=== PATIENT | female | born 1955 | race Caucasian/White ===

== ENCOUNTER 2016-12-16 20:52 | Inpatient (IN) ==
[2016-12-16] MEDS ORDERED: 0.9 % Sodium Chloride 1,000 ML IVC ONE (21:36)
[2016-12-16 22:06] LABS: Basophils % 0.1 %; Eosinophils % 0.4 %; Hematocrit 22.9 % (35.3-44.9); Immature Granulocytes % 1.2 % (0-4); Lymphocytes # 0.7 K/mcL (0.6-4.6); Lymphocytes % 9.5 %; Mean Corpuscular HGB Conc 32.8 g/dL (31.6-35.5); Mean Corpuscular Hemoglobin 33.3 pg (28.0-33.3); Mean Corpuscular Volume 101.8 fL (83.0-100.0); Mean Platelet Volume 9.6 fL (9.4-12.4); Monocytes # 0.4 K/mcL (0.0-1.3); Platelet Count 109 K/mcL (140-400); Red Blood Count 2.25 M/mcL (3.82-4.97); Red Cell Distribution Width 14.6 % (11.5-14.5); Segmented Neutrophils % 83.8 %
[2016-12-16 22:11] LABS: INR 1.3; Prothrombin Time 14.4 Seconds (9.4-12.1)
[2016-12-16 22:20] LABS: Hemoglobin 7.5 g/dL (11.5-15.4); Neutrophils # 6.5 K/mcL (1.6-8.9)
[2016-12-16 22:22] LABS: Albumin 3.2 g/dL (3.5-5.0); Albumin/Globulin Ratio 0.7 (1.1-2.2); Bilirubin,Direct 0.2 mg/dL (0.0-0.5); Bilirubin,Indirect 0.2 mg/dL (0.0-1.2); Bilirubin,Total 0.4 mg/dL (0.2-1.2); Calcium 11.1 mg/dL (8.6-10.8); Globulin 4.5 g/dL (2.4-3.5); Macrocytosis Present (Not Present); Platelet Estimate Decreased (Normal); Polychromasia 1+ (Not Present); Potassium 4.4 mEq/L (3.5-4.5); Total Protein 7.7 g/dL (6.0-8.3); Toxic Granulation Present (Not Present)
--- NOTE | 2016-12-16 22:46 | Emergency Department Note ---
Disposition Clinical Impression: Tachycardia, Liver mass Anemia Qualifiers: Anemia type: unspecified type Qualified Code(s): D64.9 - Anemia, unspecified Abdominal pain Qualifiers: Abdominal location: unspecified location Qualified Code(s): R10.9 - Unspecified abdominal pain Renal cancer Qualifiers: Laterality: right Qualified Code(s): C64.1 - Malignant neoplasm of right kidney , except renal pelvis Disposition: Admitted As Inpatient Condition: Fair Referrals: NO,PCP [Primary Care Provider] - Forms: Work/School Release, ED Satisfaction Letter Time of Disposition: 23:06 Abdominal Pain HPI - General Chief Complaint: ED Abdominal Pain Stated Complaint: PALE, WEAKNESS, ABD PAIN (CANCER PT) Time Seen by Provider: 12/16/16 21:25 Source: patient Mode of arrival: ambulatory Limitations: no limitations Nursing Notes Reviewed: Yes Vital Signs Reviewed: Yes - History of Present Illness HPI Narrative: Patient seen and examined the time of arrival. She presents to the emergency room for feeling weak and pale. She is currently in chemotherapy treatment for renal cell cancer. She had her last treatment on December 06 from the [facility]. Denies chest pain shortness of breath headache vision changes nausea vomiting or diarrhea. Denies fevers or chills. Patient is just concerned that she felt generally weak and wanted to make sure that her blood counts were normal. Pt Subjective Complaint: abdominal pain Onset (ago): day(s) Consistency: constant Location: RUQ Pain Scale: 0 Quality: cramping Radiation: none Migration to: no migration Improves with: nothing Worsens with: movement Context: recent antibiotic use, recent surgery/procedure Associated symptoms: Denies: nausea, vomiting, diarrhea, fever, chills, constipation, dysuria Treatments prior to arrival: none - Related Data Home Medications Medication Instructions Recorded Confirmed Lisinopril [Zestril] 10 mg PO DAILY 08/10/16 11/15/16 Previous Rx's Medication Instructions Recorded ALPRAZolam [Xanax 0.5 MG Tablet] 0.5 mg PO BID PRN #60 tablet 08/10/16 Nicotine [Nicotine Patch] 1 each TD DAILY #30 patch.td24 08/10/16 Dexamethasone [Decadron] 4 mg PO BID #36 tab 08/13/16 Loratadine [Claritin] 10 mg PO AD PRN #10 tablet 08/13/16 Magic Mouthwash [Magic Mouthwash 10 ml PO QID PRN #240 ml 08/13/16 BLM] Ondansetron [Zofran] 4 mg PO Q8HR PRN #90 tablet 08/13/16 Prochlorperazine Maleate 10 mg PO Q8HR #90 tablet 08/13/16 [Compazine] Nicotine Patch [Nicoderm] 21 mg TD DAILY #28 patch.td24 10/04/16 Allergies Allergy/AdvReac Type Severity Reaction Status Date / Time No Known Allergies Allergy Verified 09/13/16 13:50 All systems ED: reviewed and negative except as stated. Constitutional: Denies: fever, chills Respiratory: Denies: cough, dyspnea, wheezes, hemoptysis Gastrointestinal: Reports: abdominal pain. Denies: nausea, vomiting, diarrhea Genitourinary: Denies: urgency, dysuria Musculoskeletal: Denies: back pain, neck pain Neurological: Denies: headache Endocrine: Reports: fatigue Abdominal Pain PMH - Past Medical History Medical history: Reports: cancer Female Surgical History: Reports: cholecystectomy Psychiatric history: Reports: no psych history - Social History Smoking status: Former smoker Alcohol use: Reports: none Drug use: Reports: none Physical Exam - General Limitations: no limitations General appearance: alert, in no apparent distress - Respiratory Respiratory exam: Present: normal lung sounds bilaterally. Absent: respiratory distress, wheezes, accessory muscle use - Cardiovascular Cardiovascular exam: Present: regular rate, normal rhythm, normal heart sounds. Absent: bradycardia, tachycardia - Abdominal Exam Abdominal exam: Present: soft, Non-Tender, normal bowel sounds. Absent: tenderness, distention, guarding, rebound, rigidity, Concepcion's sign, Rovsing's sign, tenderness at McBurney's Point - Extremities Exam Extremities exam: Present: normal inspection, full ROM, normal capillary refill. Absent: tenderness, pedal edema - Back Exam Back exam: Present: normal inspection, full ROM. Absent: tenderness, CVA tenderness (R), CVA tenderness (L) - Neurological Exam Neurological exam: Present: alert, oriented X3, CN II-XII intact, normal gait - Psychiatric Psychiatric exam: Present: normal affect, normal mood - Skin Skin exam: Present: warm, dry, intact, normal color Course Course Narrative: Patient seen and examined the time arrival. See history of present illness. 61 -year-old female presents emergency room for evaluation of feeling generalized weakness. She also feels like her skin is pale. She has intermittent right- sided flank and abdominal pain. Symptoms of been more persistent urinary last 24 hours. Of note, patient has renal cell cancer for which she is currently getting chemotherapy treatment. She had her last dose of chemotherapy on December 06. Patient denied chest pain shortness of breath headache vision changes nausea vomiting or diarrhea. Denies fevers chills at this time. Her main complaint and concern at this time is that she wanted to make sure her blood counts were normal secondary to having anemia after her previous chemotherapy evaluation. Patient denies any dark stool or concern for GI bleed. She also denies any hematemesis. Vital signs reviewed on presentation are stable. Physical exam is benign. Lungs are clear heart is regular abdomen is soft nontender nondistended no guarding no rigidity. No visible signs of rash or lesion on the back. Patient moves all 4 extremities without any difficulty she has no signs of pitting edema or concern for congestive heart failure. Symptoms are concerning for underlying etiology considering she is technically immunosuppressed. Imaging studies of the chest and abdomen ordered this time. Laboratory workup including urinalysis CBC chemistry and troponin were all ordered. EKG was also collected. Disposition pending this workup and treatment course. Patient had a previous hemoglobin of 9.5 approximately 2 weeks ago. We will continue to monitor here in the emergency room as this evaluation treatment course are completed. Patient has no other complaints or symptoms. She does not request any pain medication at this time. - Reevaluation(s) Reevaluation #1: Patient found to have a hemoglobin of 7.5 here today. Rectal examination to be completed dressing for any occult blood. The rest of her laboratory workup appears to be stable in comparison to previous. EKG shows normal sinus rhythm and no acute signs of ST segment elevation. She does have sinus tachycardia 100. Patient provided with fluids while here. Type and screen ordered. Patient will be recommended to admit to the hospital once we have more definitive laboratory evaluation completed. Otherwise patient is resting comfortably in the bed in no other acute issue. We will continue to monitor his treatment course is completed Time: 22:53 Reevaluation #2: Patient discussed with the hospitalist. Detailed review of the presentation symptoms medical intervention as well as oncologic history were reviewed. On the recommendation of this time based on the presentation and findings of anemia were to transfuse the patient 1 unit of blood in the emergency room for symptomatic treatment. Otherwise no other concerns at this time. Patient will be admitted to the hospital this point. We will continue to monitor here in the emergency room until the admission process is completed. She and the family were both informed at the bedside. We discussed the findings on the CT scan as well as laboratory evaluation. They both understand this and are comfortable being admitted at this point. Time: 00:39 Vital Signs Temperature 98.3 F 12/16/16 20:55 Pulse Rate 107 12/16/16 20:55 Respiratory Rate 16 12/16/16 20:55 Blood Pressure 108/66 12/16/16 20:55 O2 Sat by Pulse Oximetry 96 12/16/16 20:55 Temperature 98.3 F 12/16/16 20:55 Pulse Rate 95 12/16/16 23:58 Respiratory Rate 16 12/16/16 23:58 Blood Pressure 106/39 12/16/16 23:58 O2 Sat by Pulse Oximetry 97 12/16/16 23:58 Oxygen Delivery Oxygen Delivery Room Air Abdominal Pain - MDM Narrative Medical decision making narrative: Anemia, chemotherapy, generalized malaise, Hemoccult-positive stool, liver lesion - Medical Records Medical records reviewed: Yes I reviewed the patient's medical records. - Lab Data Lab results reviewed: Yes I reviewed the patient's lab results. Result diagrams: 12/16/16 21:58 12/16/16 21:58 Lab Results 12/16/16 12/16/16 12/16/16 Range/Units 21:58 21:58 21:58 WBC 7.8 (4.3-11.1) K/mcL RBC 2.25 L (3.82-4.97) M/mcL Hgb 7.5 L (11.5-15.4) g/dL Hct 22.9 L (35.3-44.9) % MCV 101.8 H (83.0-100.0) fL MCH 33.3 (28.0-33.3) pg MCHC 32.8 (31.6-35.5) g/dL RDW 14.6 H (11.5-14.5) % Plt Count 109 L (140-400) K/mcL MPV 9.6 (9.4-12.4) fL Immature Gran % 1.2 (0-4) % Seg Neutrophils % 83.8 % Lymphocytes % 9.5 % Monocytes % 5.0 % Eosinophils % 0.4 % Basophils % 0.1 % Neutrophils # 6.5 (1.6-8.9) K/mcL Lymphocytes # 0.7 (0.6-4.6) K/mcL Monocytes # 0.4 (0.0-1.3) K/mcL Eosinophils # 0.0 (0.0-0.6) K/mcL Basophils # 0.0 (0.0-0.2) K/mcL Toxic Granulation Present A (Not Present) Platelet Estimate Decreased L (Normal) Polychromasia 1+ A (Not Present) Macrocytosis Present A (Not Present) PT 14.4 H (9.4-12.1) Seconds INR 1.3 APTT 26.0 (26.0-36.0) Seconds Sodium 135 L (136-145) mEq/L Potassium 4.4 (3.5-4.5) mEq/L Chloride 104 (98-109) mEq/L Carbon Dioxide 21 (19-29) mEq/L BUN 34 H (7-20) mg/dL Creatinine 1.16 H (0.57-1.11) mg/dL Est GFR ( Amer) 58 L (> 60) Est GFR (Non-Af Amer) 47 L (> 60) BUN/Creatinine Ratio 29 H (6-26) Glucose 134 H (70-99) mg/dL Calculated Osmolality 290 (280-300) Calcium 11.1 H (8.6-10.8) mg/dL Total Bilirubin 0.4 (0.2-1.2) mg/dL Direct Bilirubin 0.2 (0.0-0.5) mg/dL Indirect Bilirubin 0.2 (0.0-1.2) mg/dL AST 24 (5-34) Units/L ALT 39 (0-55) Units/L Alkaline Phosphatase 148 H (38-126) Units/L Troponin I (0-0.03) ng/mL Serum Total Protein 7.7 (6.0-8.3) g/dL Albumin 3.2 L (3.5-5.0) g/dL Globulin 4.5 H (2.4-3.5) g/dL Albumin/Globulin Ratio 0.7 L (1.1-2.2) Lipase 12 (8-78) Units/L Stool Occult Blood (Negative) Blood Type Antibody Screen Crossmatch 12/16/16 12/16/16 12/16/16 Range/Units 21:58 21:58 23:14 WBC (4.3-11.1) K/mcL RBC (3.82-4.97) M/mcL Hgb (11.5-15.4) g/dL Hct (35.3-44.9) % MCV (83.0-100.0) fL MCH (28.0-33.3) pg MCHC (31.6-35.5) g/dL RDW (11.5-14.5) % Plt Count (140-400) K/mcL MPV (9.4-12.4) fL Immature Gran % (0-4) % Seg Neutrophils % % Lymphocytes % % Monocytes % % Eosinophils % % Basophils % % Neutrophils # (1.6-8.9) K/mcL Lymphocytes # (0.6-4.6) K/mcL Monocytes # (0.0-1.3) K/mcL Eosinophils # (0.0-0.6) K/mcL Basophils # (0.0-0.2) K/mcL Toxic Granulation (Not Present) Platelet Estimate (Normal) Polychromasia (Not Present) Macrocytosis (Not Present) PT (9.4-12.1) Seconds INR APTT (26.0-36.0) Seconds Sodium (136-145) mEq/L Potassium (3.5-4.5) mEq/L Chloride (98-109) mEq/L Carbon Dioxide (19-29) mEq/L BUN (7-20) mg/dL Creatinine (0.57-1.11) mg/dL Est GFR ( Amer) (> 60) Est GFR (Non-Af Amer) (> 60) BUN/Creatinine Ratio (6-26) Glucose (70-99) mg/dL Calculated Osmolality (280-300) Calcium (8.6-10.8) mg/dL Total Bilirubin (0.2-1.2) mg/dL Direct Bilirubin (0.0-0.5) mg/dL Indirect Bilirubin (0.0-1.2) mg/dL AST (5-34) Units/L ALT (0-55) Units/L Alkaline Phosphatase (38-126) Units/L Troponin I 0.00 (0-0.03) ng/mL Serum Total Protein (6.0-8.3) g/dL Albumin (3.5-5.0) g/dL Globulin (2.4-3.5) g/dL Albumin/Globulin Ratio (1.1-2.2) Lipase (8-78) Units/L Stool Occult Blood Positive A (Negative) Blood Type O POSITIVE Antibody Screen NEGATIVE Crossmatch See Detail - Radiology Data Radiology results reviewed: Yes I reviewed the patient's radiology results. Chest x-ray is negative for acute intrathoracic related pathology. CT imaging the abdomen is concerning for possible metastatic liver lesion with effusion. No other acute pathology noted on that evaluation. - EKG Data EKG attestation: Yes I reviewed and interpreted this EKG. EKG shows normal: sinus rhythm, axis, intervals, QRS complexes, ST-T waves Rate: tachycardia Rhythm: NSR [place]/QRS: normal When compared to previous EKG there are: previous EKG unavailable Interpretation: normal EKG Attestation Statement - Attestation Attestation: I personally interviewed and examined this patient and my medical decision- making was reviewed with the ED Resident Physician, Dr. Kim. I agree with the documented findings, disposition and treatment plan as described except to the extent set forth below. Patient is a 61-year-old white female with history of renal cell carcinoma is being managed by hem/onc at [facility] and currently in chemotherapy. Patient's last treatment was December 06. Patient presented here complaining of generalized weakness and pallor. Patient concerned that maybe her labs were abnormal due to the generalized weakness was concern for possible anemia and came in for evaluation. Patient denies any chest pain or pressure no shortness breath, no fevers or chills, upper respiratory symptoms or cough, no abdominal pain, no nausea vomiting or diarrhea, no bright red blood per rectum per patient. No syncopal events or presyncopal events at home prior to arrival. No history of falls or trauma. Patient also complaining of right upper quadrant right back pain that she has been experiencing that seems to be gradually worsening. She is status post right nephrectomy as well as right cholecystectomy. Patient's vital signs were stable on arrival and patient appeared in no acute distress. I agree with physical exam findings as documented. Patient found to be more anemic than prior recent labs with a hemoglobin of 7.5. Patient was typed and crossed from the ED. Patient was also found to be guaiac positive from below from stool specimen by rectal exam. Patient with no prior history of lower GI bleeding. Patient also with her thrombocytopenia. Obtain CT scan and imaging due to patient's right-sided abdominal and back pain. CT shows new metastatic changes to the liver with subcapsular fluid collection most likely causing her right-sided pain. Discussed the results with the patient and will admit the patient for further evaluation and consultation by hem/onc. Patient resting more comfortably following pain medicine administration in the ED. Patient was accepted for admission by the hospitalist for further evaluation. Patient will be admitted for anemia, GI bleed, abdominal pain, and liver metastases with perihepatic fluid collection.
[2016-12-17 01:13] LABS: Hematocrit 20.9 % (35.3-44.9); Hemoglobin 6.8 g/dL (11.5-15.4)
[2016-12-17] MEDS ORDERED: 0.9 % Sodium Chloride 250 ML ONE ×3 (01:51→06:24)
[2016-12-17] MEDS ORDERED: Naloxone 0.4 MG/ML INJ IVP PRN (02:06)
[2016-12-17] MEDS ORDERED: ALPRAZolam 0.5 MG TABLET PO PRN (02:09)
[2016-12-17] MEDS ORDERED: Prochlorperazine 10 MG/2 ML VIAL IVP PRN (02:10)
[2016-12-17] MEDS: *HR* Morphine 2 MG/ML SYRINGE IVP PRN ×2 (02:54→06:54)
--- NOTE | 2016-12-17 03:43 | Internal Med History&Physical ---
<Jimenez Lucio - Last Filed: 12/17/16 03:46> Date of Encounter: 12/17/16 Time of Encounter: 03:41 Assessment and Plan (1) Anemia Current visit: Yes Status: Acute Acute blood loss anemia likely due to bleeding around the liver. CT scan shows a large fluid collection measuring 21 cm x 5.3 cm x 16 cm. Spoke with the radiologist who feels that this fluid collection is more dense than simple fluid and there is concern that this fluid is blood. Patient is hemodynamically stable at this time. Hemoglobin was 7.5 on presentation, recheck was 6.8 however this was after a liter bolus other may be a dilutional effect. Patient denies trauma or any injury to the area that could have caused this bleeding. There is concern for metastatic disease in this area so bleeding tumor is a concern. Patient will be transfused 3 units she does have a mild coagulopathy with an INR 1.3 and not on any blood thinners. Given the concern for active bleeding we will administer 10 mg of IV vitamin K. Hemoccult stool was positive however the patient denies any hematemesis, hematochezia, melena. While this could be a source of bleeding and the patient will likely need endoscopy in the near future, at this point bleeding around the liver seems to be the more likely source. Will give Protonix IV twice a day. Surgery has been consulted. CODE STATUS discussion was held with the patient and her . Patient wishes to remain a full code at this time. Patient does not have a designated medical power of assistant county attorney however she did not need her Bill to be her decision maker in the event that she cannot make decisions for herself. Will consult social work to assist the patient and her in completing medical power of assistant county attorney paperwork. Qualifiers: Anemia type: other cause Other causes of anemia: acute posthemorrhagic Qualified Code(s): D62 - Acute posthemorrhagic anemia (2) Liver hematoma Current visit: Yes Status: Acute Concern for bleeding around the liver as discussed above. We will transfuse 3 units and reversed mild coagulopathy with 10 mg of IV vitamin K. Surgery has been consulted. Qualifiers: Encounter type: initial encounter Qualified Code(s): S36.112A - Contusion of liver, initial encounter (3) FANY (acute kidney injury) Current visit: Yes Status: Acute Patient has mild elevation in her creatinine to 1.16 with a GFR 47. Previous measurements all showed GFR greater than 60. Likely related to anemia and dehydration. Patient received a liter bolus in the emergency department and will receive 3 units of blood. Will recheck in the morning. Patient has good urine output. (4) Nausea and vomiting Current visit: Yes Status: Acute Likely related to chemotherapy, improved at this time. Continue dexamethasone 4 mg twice a day and Compazine 10 mg IV every 6 when necessary. Qualifiers: Vomiting type: unspecified Vomiting Intractability: non-intractable Qualified Code(s): R11.2 - Nausea with vomiting, unspecified (5) Urothelial cancer Current visit: No Status: Acute Status post nephrectomy approximately 3 years ago and radical hysterectomy in June, all performed at [facility]. The patient recently completed her final chemotherapy treatment on 12/06/2016. There is concern for increased size of liver masses seen on CT. Oncology will be consulted. (6) Hypertension Current visit: Yes Status: Acute Stable. We will hold antihypertensives at this time. Continue to monitor. Qualifiers: Hypertension type: essential hypertension Qualified Code(s): I10 - Essential (primary) hypertension (7) DVT prophylaxis Current visit: Yes Status: Acute Pharmacologic DVT prophylaxis is contraindicated due to concern for bleeding. We will initiate EPCDs. Internal Medicine - H&P: HPI Chief complaint: Fatigue/weakness Admitted From: Emergency Dept Plans for Post Hospital Care: Home History of present illness: Ms. Weaver is a 61 year old female with history of hypertension and urothelial carcinoma presents with fatigue and weakness. Patient states that over the weekend she felt extremely fatigued and weak and mostly laid around on the couch all weekend. She also complained of mild shortness of breath. Patient states that she thought this was initially related to her chemotherapy which she completed on December 06 but her symptoms did not improve so she came to the emergency department. Patient also complains of nausea, vomiting, and diarrhea which been present the entire time she has been undergoing chemotherapy. She denies any hematemesis, hematochezia, melena. She reports right flank pain that has been present for several years. She denies any change in this pain. She denies any falls, trauma, injury to her back, flank, or abdomen. She denies fever, chills, chest pain, cough, dysuria, hematuria. Past Med Surg Social Fam HX - Past Medical History Medical history: cancer Psychiatric history: no psych history - Past Surgical History Surgical History: cancer surgery (Nephrectomy, radical hysterectomy) - Social History Smoking Status: Former smoker Smokeless Tobacco Status: No Alcohol use: none Drug use: none Internal Medicine - H&P: Meds ALPRAZolam [Xanax 0.5 MG Tablet] 0.5 mg PO BID PRN #60 tablet 08/10/16 [Rx] Lisinopril [Zestril] 10 mg PO DAILY 08/10/16 [History] Nicotine [Nicotine Patch] 1 each TD DAILY #30 patch.td24 08/10/16 [Rx] Dexamethasone [Decadron] 4 mg PO BID #36 tab 08/13/16 [Rx] Loratadine [Claritin] 10 mg PO AD PRN #10 tablet 08/13/16 [Rx] Magic Mouthwash [Magic Mouthwash BLM] 10 ml PO QID PRN #240 ml 08/13/16 [Rx] Ondansetron [Zofran] 4 mg PO Q8HR PRN #90 tablet 08/13/16 [Rx] Prochlorperazine Maleate [Compazine] 10 mg PO Q8HR #90 tablet 08/13/16 [Rx] Nicotine Patch [Nicoderm] 21 mg TD DAILY #28 patch.td24 10/04/16 [Rx] Allergies No Known Allergies Allergy (Verified 09/13/16 13:50) All Systems PM: A 10-system review of systems was performed and is negative for pertinent findings except as documented above in the HPI. - Constitutional Constitutional: fatigue, lethargy, weakness, no chills, no fever(s) - EENT Eyes: no blurry vision, no change in vision Nose, mouth and throat: no sinus pain, no sinus pressure - Cardiovascular Cardiovascular ROS IM: dyspnea, lightheadedness, no chest pain, no edema, no syncope - Respiratory Respiratory: dyspnea, no cough, no hemoptysis, no wheezing, no chest congestion , no excessive phlegm production, no change in phlegm color - Gastrointestinal Gastrointestinal: loose stools, nausea, vomiting, no abdominal pain, no change in bowel habits, no change in stool character, no hematemesis, no hematochezia, no melena - Genitourinary Genitourinary: no dysuria, no hematuria, no urinary urgency Menstruation: amenorrhea - Musculoskeletal Musculoskeletal ROS IM: no numbness, no stiffness, no tingling - Integumentary Integumentary IM: no erythema, no rash, no unusual bruising - Neurological Neurological ROS: dizziness, weakness, no confusion, no disequilibrium, no focal weakness, no frequent falls, no numbness, no tingling - Endocrine Endocrine IM: no polydipsia, no polyuria - Hematologic/Lymphatic Hematologic/Lymphatic: no easy bleeding, no easy bruising - Constitutional Vitals: Temp Pulse Resp BP Pulse Ox 97.8 F 94 14 119/60 98 12/17/16 02:28 12/17/16 02:28 12/17/16 02:28 12/17/16 02:28 12/17/16 02:13 General appearance: Present: A&O X 3, pleasant, no acute distress, answers questions appropriately - Head Head exam: Present: atraumatic, normal inspection, normocephalic - Eye Eye exam: Present: EOMI, PERRL Additional comments: Conjunctival pallor - ENT ENT exam: Present: mucous membranes moist, normal oropharynx - Respiratory Respiratory exam: Present: CTAB. Absent: rales, rhonchi, wheezes - Cardiovascular Cardiovascular exam: Present: RRR. Absent: gallop, rubs, systolic murmur - GI/Abdominal GI/Abdominal exam: Present: hernia (Soft, nontender, easily reducible), normal bowel sounds, soft. Absent: distended, tenderness - Extremities Exam Extremities exam: Present: warm. Absent: pedal edema, tenderness - Neurological Exam Neurological exam: Present: alert, CN II-XII intact, oriented X3, no focal deficits Internal Med - H&P Results - Labs CBC & Chem 7: 12/17/16 01:08 12/16/16 21:58 <Randal Miner - Last Filed: 12/17/16 04:35> Date of Encounter: 12/17/16 - Constitutional Constitutional: fatigue, lethargy, no fever(s), no night sweats - EENT Nose, mouth and throat: no nasal congestion, no sinus pain, no sinus pressure, no sore throat - Cardiovascular Cardiovascular ROS IM: no chest pain - Respiratory Respiratory: dyspnea - Gastrointestinal Gastrointestinal: no abdominal pain, no hematemesis, no hematochezia, no melena - Musculoskeletal Musculoskeletal ROS IM: muscle weakness, no arthralgias, no back pain - Integumentary Integumentary IM: no rash, no jaundice - Neurological Neurological ROS: dizziness, weakness - Psychiatric Psychiatric: no anxiety, no depression - Endocrine Endocrine IM: no polydipsia, no polyuria - Hematologic/Lymphatic Hematologic/Lymphatic: no easy bruising - Constitutional Vitals: Temp Pulse Resp BP Pulse Ox 98.1 F 89 17 95/37 98 12/17/16 04:02 12/17/16 04:02 12/17/16 04:02 12/17/16 04:02 12/17/16 04:02 General appearance: Present: cooperative, A&O X 3, pleasant, no acute distress, answers questions appropriately - Eye Eye exam: Present: EOMI, PERRL. Absent: scleral icterus Pupils: Present: normal accommodation - Neck Neck exam general surgery: Present: full ROM, supple - Respiratory Respiratory exam: Present: CTAB. Absent: rales, rhonchi, wheezes - Cardiovascular Cardiovascular exam: Present: RRR. Absent: +S1, +S2 - GI/Abdominal GI/Abdominal exam: Present: normal bowel sounds, soft, no peritoneal signs. Absent: guarding, mass, rebound - Extremities Exam Extremities exam: Present: full ROM, warm. Absent: calf tenderness - Back Exam Back exam: Present: CVA tenderness (R), full ROM. Absent: CVA tenderness (L) - Neurological Exam Neurological exam: Present: alert, CN II-XII intact, oriented X3, no focal deficits - Psychiatric Psychiatric exam: Present: agitated - Skin Skin exam: Present: dry, warm. Absent: rash Internal Med - H&P Results - Labs CBC & Chem 7: 12/17/16 01:08 12/16/16 21:58 - Diagnostic Studies CT scan - abdomen Status: image reviewed by me (large fluid collection surrounding the liver.) - Attending Attestation I discussed the patient KAKTOVIK, PMH, ROS, lab data and exam findings with Dr. Lucio. I then saw and examined paitent independently as well. Pt feels well and her only complaint is easy fatigueabilitiy. She denies any GI or blood loss. I reviewed her CT scan from today and compared it to one in August. There is clearly a significant accumulation of fluid (suspect blood) and pressing upon the liver. She has had no trauma to her flank and/or anterior abdomen. I agree with transfusing blood and close H/H monitoring. In addition, I would order Vitamin K. We will ask oncology to assist in patient's care. Dr. Stephens was consulted by MATTHEW hunter. We will await his opinion and guidance as well. Other than my comments noted above and exam findings, I agree with Dr. Lucio's assessment and plan.
[2016-12-17] MEDS: Pantoprazole 40 MG VIAL IVP SCH ×2 (06:03→17:52)
--- NOTE | 2016-12-17 08:28 | Oncology Inp Consult Note ---
Date of Encounter: 12/17/16 Time of Encounter: 08:27 - Data of Consult Patient: known to practice within the last 3 years Consult date: 12/17/16 Requesting Physician: Casandra Goodman Primary Care Provider: Joe Suarez - Consult Narrative Reason for consult: Metastatic urothelial cancer History of present illness: Ms. Weaver is a 61 year old female patient of the cancer center who has established oncologic care for metastatic urothelial cancer. She is followed by my partner Dr. Almonte and was last seen in the office 12/06/16. I have summarized patient's heme/onc background below based on Dr. Almonte 's most recent office report: 61-year-old female with medical history significant for urothelial carcinoma treated with surgery in 2013? High-grade bladder tumor status post resection in March 2016 and was planned to start BCG treatments, CT imaging in March 2016 showed a 3 cm complex cyst and solid right ovarian mass. Patient was seen by Dr. Stark that showed a right adnexa 10 x 9 cm complex ovarian cyst. Endometrial biopsy at that time was negative. She was referred to [place] for surgery to undergo further pelvic mass. She was seen by Dr. Sugar Martin, had undergone (06/20) debulking for primary ovarian malignancy with total abdominal hysterectomy, bilateral salpingo-oophorectomy and omentectomy. Left ovary left fallopian tube mass, fibroid uterus omentum with large masses measuring 4.5 cm but found which were removed and the considerations were noted and end of surgery and no gross residual disease. Final pathology is recurrent urothelial carcinoma involving fallopian tube surface tumor biopsy was suggestive of metastatic urothelial carcinoma right ovary right fallopian tube salpingo-oophorectomy specimen high-grade urothelial carcinoma with necrosis consistent with recurrent tumor 2 CK 7 positive uroplakin 2 positive P 63 positive 06/20 Patient was referred for further evaluation and treatment for her metastatic urothelial carcinoma. CAT scan chest abdomen and pelvis August 2016. Surgical showed scarring/fluid collection, metastatic disease cannot be excluded. Small periaortic lymphadenopathyc adenopathy She started systemic therapy for metastatic bladder ca - 08/21 ROS: 12/19 12 point review of systems is otherwise negative. She had developed some burning in her feet, her last treatment as a result of which chemotherapy doses decreased. PAST MEDICAL HISTORY: abnormal mammogram, tobacco abuse Past Surgeries: rt kidney removed 2013, bladder tumor removed march 2016, cholecystectomy, breast biopsy FAMILY HISTORY: Father: , leukemia Mother: alive, uterine cancer, CVA, COPD, PAD, aneurysm Family hx of HTN, cancer, CVA and PAD. mom: cervical cancer SOCIAL HISTORY Tobacco use: Current smoker-doesn't smoke everyday Alcohol use: Denies Drug use: Denies Social history comments: Currently works at [employer] Living situation: Lives in [facility] IMPRESSION AND PLAN Metastatic high grade urothelial cancer s/p resection of gross disease-LEXI, BSO- omentectomy for suspected ovarian-pelvic mass 06/20. Residual disease at nephrectomy bed cannot be excluded, mild adenopathy-started chemotherapy for metastatic disease with carbo/taxol C1 08/23/16 Tolerated well, C6 12/06/16, today--modified dose of taxol due to neuropathy/ burning in feet. Her carbo has been dose decreased previously. She continues to work Neulasta to prevent chemo associated cytopenia. Minimal discomfort from the ankles probably related to Neulasta, chemotherapy. Patient is currently hospitalized for acute blood loss anemia due to large perihepatic hematoma confirmed an abdomen CT after presenting with progressive weakness and painful abdominal discomfort. Oncology is consulted re: possible contusion from her underlying metastatic urothelial cancer. Dr. Stephens has also been consulted for recommendations regarding management of a perihepatic hematoma. Her last visit chemotherapy was 12/06/16 at which time she had completed 6 planned cycles of treatment. She evidently tolerated treatment well with no unexpected side effects. Patient seen and examined at bedside. Alfred was present at time of evaluation. Chart review for details of ongoing care by hospital team which is much appreciated. She reports feeling considerably better following transfusion of 3 units of packed PRBC. She denies any antecedent trauma leading up to her hospitalization. Rest of past medical, surgical, family, social history detailed below and verified with patient today. Review of systems: 12 point review of systems performed with patient and positive findings noted in history of present illness. All other systems are negative: Physical exam: Vital Signs Temp 98.1 F 12/17/16 07:08 Pulse 83 12/17/16 08:08 Resp 25 12/17/16 07:08 BP 106/50 12/17/16 07:08 Pulse Ox 96 12/17/16 07:08 GENERAL: Alert and oriented, comfortable appearing. Mental Status: Affect appropriate for circumstances HEENT: Sclerae anicteric. No mucositis or thrush. No other oral or pharyngeal lesions or erythema. Skin: No rashes or petechiae. No evidence of skin malignancy Lymph nodes: No cervical, supraclavicular, axillary, or inguinal adenopathy. Lungs: Clear to auscultation bilaterally. Clear to percussion bilaterally. Cardiovascular: Regular rate and rhythm. No gallops, murmurs, or rubs. Abdomen: Soft, nontender; No organomegaly or masses palpable. Extremities: No edema. No calf swelling or tenderness. No joint deformity. Neurologic: Alert, normal gait; no focal weakness or sensory abnormalities. Results: Laboratory Last Values WBC 7.8 K/mcL (4.3-11.1) 12/16/16 21:58 RBC 2.25 M/mcL (3.82-4.97) L 12/16/16 21:58 Hgb 6.8 g/dL (11.5-15.4) L 12/17/16 01:08 Hct 20.9 % (35.3-44.9) L 12/17/16 01:08 MCV 101.8 fL (83.0-100.0) H 12/16/16 21:58 MCH 33.3 pg (28.0-33.3) 12/16/16 21:58 MCHC 32.8 g/dL (31.6-35.5) 12/16/16 21:58 RDW 14.6 % (11.5-14.5) H 12/16/16 21:58 Plt Count 109 K/mcL (140-400) L 12/16/16 21:58 MPV 9.6 fL (9.4-12.4) 12/16/16 21:58 Immature Gran % 1.2 % (0-4) 12/16/16 21:58 Seg Neutrophils % 83.8 % 12/16/16 21:58 Lymphocytes % 9.5 % 12/16/16 21:58 Monocytes % 5.0 % 12/16/16 21:58 Eosinophils % 0.4 % 12/16/16 21:58 Basophils % 0.1 % 12/16/16 21:58 Neutrophils # 6.5 K/mcL (1.6-8.9) 12/16/16 21:58 Lymphocytes # 0.7 K/mcL (0.6-4.6) 12/16/16 21:58 Monocytes # 0.4 K/mcL (0.0-1.3) 12/16/16 21:58 Eosinophils # 0.0 K/mcL (0.0-0.6) 12/16/16 21:58 Basophils # 0.0 K/mcL (0.0-0.2) 12/16/16 21:58 Toxic Granulation Present (Not Present) A 12/16/16 21:58 Platelet Estimate Decreased (Normal) L 12/16/16 21:58 Polychromasia 1+ (Not Present) A 12/16/16 21:58 Macrocytosis Present (Not Present) A 12/16/16 21:58 PT 14.4 Seconds (9.4-12.1) H 12/16/16 21:58 INR 1.3 12/16/16 21:58 APTT 26.0 Seconds (26.0-36.0) 12/16/16 21:58 Sodium 135 mEq/L (136-145) L 12/16/16 21:58 Potassium 4.4 mEq/L (3.5-4.5) 12/16/16 21:58 Chloride 104 mEq/L (98-109) 12/16/16 21:58 Carbon Dioxide 21 mEq/L (19-29) 12/16/16 21:58 BUN 34 mg/dL (7-20) H 12/16/16 21:58 Creatinine 1.16 mg/dL (0.57-1.11) H 12/16/16 21:58 Est GFR ( Amer) 58 (> 60) L 12/16/16 21:58 Est GFR (Non-Af Amer) 47 (> 60) L 12/16/16 21:58 BUN/Creatinine Ratio 29 (6-26) H 12/16/16 21:58 Glucose 134 mg/dL (70-99) H 12/16/16 21:58 Calculated Osmolality 290 (280-300) 12/16/16 21:58 Calcium 11.1 mg/dL (8.6-10.8) H 12/16/16 21:58 Total Bilirubin 0.4 mg/dL (0.2-1.2) 12/16/16 21:58 Direct Bilirubin 0.2 mg/dL (0.0-0.5) 12/16/16 21:58 Indirect Bilirubin 0.2 mg/dL (0.0-1.2) 12/16/16 21:58 AST 24 Units/L (5-34) 12/16/16 21:58 ALT 39 Units/L (0-55) 12/16/16 21:58 Alkaline Phosphatase 148 Units/L (38-126) H 12/16/16 21:58 Troponin I 0.00 ng/mL (0-0.03) 12/16/16 21:58 Serum Total Protein 7.7 g/dL (6.0-8.3) 12/16/16 21:58 Albumin 3.2 g/dL (3.5-5.0) L 12/16/16 21:58 Globulin 4.5 g/dL (2.4-3.5) H 12/16/16 21:58 Albumin/Globulin Ratio 0.7 (1.1-2.2) L 12/16/16 21:58 Lipase 12 Units/L (8-78) 12/16/16 21:58 Stool Occult Blood Positive (Negative) A 12/16/16 23:14 Blood Type O POSITIVE 12/16/16 21:58 Antibody Screen NEGATIVE 12/16/16 21:58 Crossmatch See Detail 12/16/16 21:58 Radiographic studies: I personally reviewed and interpreted patient's most recent imaging studies dated 12/16/16. I discussed the findings with the patient today. Abdomen/Pelvis CT 12/16/16 21:39 IMPRESSION: Large subcapsular perihepatic fluid collection as detailed likely the cause of the patient's pain. There is also an inferior right lobe liver mass as well as probable diffuse intraperitoneal soft tissue density metastases. The liver masses has increased in size compared prior study when it was essentially nonvisualized other than irregular soft tissue posterior to the right lobe of the liver. D/ / Edson Campos MD / Edson Campos MD Interpreting Provider: Edson Campos MD Chest X-Ray 12/16/16 21:39 IMPRESSION: Negative portable chest. D/ / John Davila MD / John Davila MD Interpreting Provider: John Davila MD Impression/recommendations: Acute blood loss anemia: Due to unexplained perihepatic hematoma. Etiology unclear but abdomen CT notes enlarging liver masses. Not sure if her liver lesions on the basis of progressive metastatic disease are pre-existing liver lesions associated with intracapsular hemorrhage. Nevertheless, she appears to be doing relatively well with ongoing supportive measures I would recommend transfusion support to maintain hemoglobin of 7 or greater. She also has mild thrombocytopenia which is likely due to platelet consumption from hemorrhage. We'll monitor and transfuse pheresed platelets as needed to maintain platelet count of 30,000 or greater if she is actively bleeding. Perihepatic hematoma: Etiology unclear at this time. Contribution from underlying malignancy is a possibility although I do not appreciate any discrete lesion to explain her hemorrhage on my independent review of her scans. We'll await input from surgery. Metastatic urothelial cancer. She had maximal debulking of her recurrent disease following initial right nephroureterectomy for urothelial cancer in 2013. Due to her high recurrence risk, she completed a course of 6 cycles of combination chemotherapy adjuvantly with last treatment being on 12/06/16. No acute oncologic intervention needed at this time. We will review her case in our multidisciplinary tumor conference to reassess her liver lesion. We'll follow the patient along side you during this hospitalization but please do not hesitate to call regarding interval hematologic questions as they arise. Thank you for your excellent ongoing care for allowing us to see her while in- house. This report was created using voice recognition software and may contain errors. It was signed but not edited to expedite communication. Corrections will be made in a separate addendum as needed. Past Med Surg Social Fam HX - Past Medical History Medical history: cancer, hypertension, malignancy, renal disease Psychiatric history: no psych history - Past Surgical History Surgical History: hysterectomy, other - Social History Smoking Status: Former smoker Packs per day: 2 Smokeless Tobacco Status: No Alcohol use: none Drug use: none - Family History Mother Hx Family Cancer: Yes (Uterine, bladder cancer.) Medications and Allergies ALPRAZolam [Xanax 0.5 MG Tablet] 0.5 mg PO BID PRN #60 tablet 08/10/16 [Rx] Lisinopril [Zestril] 10 mg PO DAILY 08/10/16 [History] Nicotine [Nicotine Patch] 1 each TD DAILY #30 patch.td24 08/10/16 [Rx] Dexamethasone [Decadron] 4 mg PO BID #36 tab 08/13/16 [Rx] Loratadine [Claritin] 10 mg PO AD PRN #10 tablet 08/13/16 [Rx] Magic Mouthwash [Magic Mouthwash BLM] 10 ml PO QID PRN #240 ml 08/13/16 [Rx] Ondansetron [Zofran] 4 mg PO Q8HR PRN #90 tablet 08/13/16 [Rx] Prochlorperazine Maleate [Compazine] 10 mg PO Q8HR #90 tablet 08/13/16 [Rx] Nicotine Patch [Nicoderm] 21 mg TD DAILY #28 patch.td24 10/04/16 [Rx] Allergies No Known Allergies Allergy (Verified 09/13/16 13:50) Oncology - Exam - Constitutional Vitals: Temp Pulse Resp BP Pulse Ox 98.1 F 83 25 106/50 96 12/17/16 07:08 12/17/16 08:08 12/17/16 07:08 12/17/16 07:08 12/17/16 07:08 Consult Discharge Plan - Plan Referrals: Joe Suarez DO [Primary Care Provider] -
[2016-12-17] MEDS: 0.9 % Sodium Chloride 1,000 ML IVC SCH ×2 (10:00→21:34)
[2016-12-17 10:27] LABS: Ionized Calcium 1.51 mmol/L (1.15-1.35)
[2016-12-17 10:28] LABS: Fibrinogen 565 mg/dL (169-393)
[2016-12-17 10:31] LABS: D-Dimer 1856 ng/mLFEU (0-500)
[2016-12-17 10:34] LABS: Alanine Aminotransferase 35 Units/L (0-55); Albumin 2.9 g/dL (3.5-5.0); Albumin/Globulin Ratio 0.7 (1.1-2.2); Alkaline Phosphatase 136 Units/L (38-126); Aspartate Amino Transferase 21 Units/L (5-34); BUN/Creatinine Ratio 30 (6-26); Bilirubin,Total 0.9 mg/dL (0.2-1.2); Blood Urea Nitrogen 28 mg/dL (7-20); Calcium 10.5 mg/dL (8.6-10.8); Carbon Dioxide 20 mEq/L (19-29); Chloride 106 mEq/L (98-109); Globulin 4.3 g/dL (2.4-3.5); Glucose 134 mg/dL (70-99); Osmolality,Calculated 285 (280-300); Phosphorous 2.3 mg/dL (2.3-4.7); Potassium 4.3 mEq/L (3.5-4.5); Sodium 134 mEq/L (136-145); Total Protein 7.2 g/dL (6.0-8.3); eGFR For African Americans > 60 (> 60); eGFR For Non-African Americans > 60 (> 60)
[2016-12-17 11:34] LABS: Gamma Glutamyl Transpeptidase 124 Units/L (9-36)
[2016-12-17 11:43] LABS: Bilirubin,Urine Negative (Negative); Blood,Urine Large (Negative); Clarity,Urine Cloudy (Clear); Color,Urine Yellow (Yellow); Glucose,Urine (UA) Normal (Normal); Ketones,Urine Negative (Negative); Leukocyte Esterase,Urine Small (Negative); Nitrite,Urine Positive (Negative); PH,Urine 5.5 pH Units (5.0-8.0); Protein,Urine 30 mg/dL (Neg-Trace); Specific Gravity,Urine 1.023 (1.010-1.025); Urobilinogen,Urine Normal (Normal)
[2016-12-17 11:44] LABS: Bacteria,Urine Moderate per hpf (None-Few); Hyaline Casts,Urine None Seen per lpf (None-Few); RBC,Urine 50-100 per hpf (0-3); Squamous Epithelial Cell,Urine Moderate per lpf (None-Few); WBC,Urine 15-30 per hpf (0-3)
--- NOTE | 2016-12-17 12:32 | General Surgery Consult Note ---
Date of Encounter: 12/17/16 Time of Encounter: 12:00 History of Present Illness Consult date: 12/17/16 Requesting physician: Serafin Kim History of present illness: 61 yo with known metastatic urothelial cancer admitted after presenting [facility] with progressive weakness, malaise and right flank/back pain. Patient had just completed hemotherapy approximately 1 week prior. Patient was notably anemic, hemoglobin on presentation 7.[address], without contrast, showed a large collection surrounding the liver measuring 21 x 5.3 x 16 cm. The density was suggestive of blood but it appears contained consistent with a subcapsular hematoma. Additional findings include less dense fluid surrounding the spleen with loculated collections throughout the abdominal with vague nodularity suggestive carcinomatosis. The CT was personally reviewed with [facility] this AM prior to my examination of the patient. The patient received 3 units of packed cells overnight and is feeling better this morning. BP is improved from 95/37 - 106/50 currently 126/86. Pulse 80, respirations 18. The patient has remained afebrile since her presentation to the ED. Past medical history: Metastatic urothelial cancer, hypertension, and long history of tobacco use Surgical history includes prior right nephrectomy; radical hysterectomy; resection bladder tumor; cholecystectomy; breast biopsy Allergies: No known drug allergies Medications: Alprazolam 0.5 mg by mouth twice a day as needed for anxiety Lisinopril 10 mg by mouth daily Nicotine patch 21 mg one daily Dexamethasone 4 mg by mouth twice a day Loratadine 10 mg by mouth as directed as needed Ondansetron 4 mg by mouth every 8 hours when necessary for nausea or vomiting Prochlorperazine 10 mg by mouth every 8 hours as needed for nausea or vomiting Magic mouthwash 10 mL by mouth 4 times daily when necessary Social history: , lives at home with her spouse; admits to smoking one half packs daily for over 35 years. Her last cigarette was approximately 1 week ago. The patient denies any alcohol or illicit drug use. Family history: Mother secondary to leukemia; mother with history of uterine cancer, stroke, COPD, and aneurysm Physical examination: Age-appropriate woman who appears to be in no acute distress; alopecia is noted Skin is warm, without obvious jaundice; patient is 1.55 m tall, 73.6 kg, BMI 30.7 Lungs: Clear; no obvious abdominal pain with deep inspiration Cardiac: Regular rate, no appreciable murmurs Abdomen: Asymmetric but nontender. Large ventral hernia to the right of midline without obvious incarcerated tissue. No appreciable intra-abdominal masses. No tenderness or rebound. Active bowel sounds. Extremities without obvious clubbing cyanosis or edema Impression: 61-year-old with known metastatic urothelial cancer admitted after presenting with progressive weakness, malaise, right flank and back pain. The patient exhibited signs and symptoms of recent hemorrhage with radiologic evidence of a large subcapsular hepatic hematoma. The subcapsular hematoma appears to be related to the metastatic disease with spontaneous hemorrhage following recent administration of chemotherapy. The patient is on steroids ( dexamethasone) which may increase the risk of continuing or recurrent hemorrhage. The patient has acute blood loss anemia. The patient has evidence of additional fluid within the abdomen, potentially representing malignant ascites. Diffuse intra peritoneal nodularity suggestive of carcinomatosis is noted. The patient is currently hemodynamically stable and has been transfused 3 units packed red blood cells. Repeat H&H following this transfusion is pending. Lengthy discussion with the patient and her was in attendance. At present time the patient does not require surgical intervention but is at risk for ongoing or recurrent hemorrhage. In the face of metastatic disease will hold surgical intervention unless continued or recurrent hemorrhage requiring such intervention becomes evident. Thank you for this consultation. Past Med Surg Social Fam HX - Past Medical History Medical history: cancer, hypertension, malignancy, renal disease Psychiatric history: no psych history - Past Surgical History Surgical History: hysterectomy, other - Social History Smoking Status: Former smoker Packs per day: 2 Smokeless Tobacco Status: No Alcohol use: none Drug use: none - Family History Mother Hx Family Cancer: Yes (Uterine, bladder cancer.) Medications and Allergies ALPRAZolam [Xanax 0.5 MG Tablet] 0.5 mg PO BID PRN #60 tablet 08/10/16 [Rx] Lisinopril [Zestril] 10 mg PO DAILY 08/10/16 [History] Dexamethasone [Decadron] 4 mg PO BID #36 tab 08/13/16 [Rx] Loratadine [Claritin] 10 mg PO AD PRN #10 tablet 08/13/16 [Rx] Magic Mouthwash [Magic Mouthwash BLM] 10 ml PO QID PRN #240 ml 08/13/16 [Rx] Ondansetron [Zofran] 4 mg PO Q8HR PRN #90 tablet 08/13/16 [Rx] Prochlorperazine Maleate [Compazine] 10 mg PO Q8HR #90 tablet 08/13/16 [Rx] Nicotine Patch [Nicoderm] 21 mg TD DAILY #28 patch.td24 10/04/16 [Rx] Allergies No Known Allergies Allergy (Verified 09/13/16 13:50) Review of Systems All systems PM: A 10-system review of systems was performed and is negative for pertinent findings except as documented above in the HPI. General Surgery Exam Initial Vital Signs Temp Pulse Resp BP Pulse Ox 98.3 F 107 16 108/66 96 12/16/16 20:55 12/16/16 20:55 12/16/16 20:55 12/16/16 20:55 12/16/16 20:55 Exam Initial Vital Signs Temp Pulse Resp BP Pulse Ox 98.3 F 107 16 108/66 96 12/16/16 20:55 12/16/16 20:55 12/16/16 20:55 12/16/16 20:55 12/16/16 20:55 Results - Labs 12/17/16 01:08 12/17/16 10:14 Abnormal lab results RBC 2.25 M/mcL (3.82-4.97) L 12/16/16 21:58 Hgb 6.8 g/dL (11.5-15.4) L 12/17/16 01:08 Hct 20.9 % (35.3-44.9) L 12/17/16 01:08 MCV 101.8 fL (83.0-100.0) H 12/16/16 21:58 RDW 14.6 % (11.5-14.5) H 12/16/16 21:58 Plt Count 109 K/mcL (140-400) L 12/16/16 21:58 Toxic Granulation Present (Not Present) A 12/16/16 21:58 Platelet Estimate Decreased (Normal) L 12/16/16 21:58 Polychromasia 1+ (Not Present) A 12/16/16 21:58 Macrocytosis Present (Not Present) A 12/16/16 21:58 PT 14.4 Seconds (9.4-12.1) H 12/16/16 21:58 Fibrinogen 565 mg/dL (169-393) H 12/17/16 10:14 D-Dimer 1856 ng/mLFEU (0-500) H 12/17/16 10:14 Sodium 134 mEq/L (136-145) L 12/17/16 10:14 BUN 28 mg/dL (7-20) H 12/17/16 10:14 BUN/Creatinine Ratio 30 (6-26) H 12/17/16 10:14 Glucose 134 mg/dL (70-99) H 12/17/16 10:14 Ionized Calcium 1.51 mmol/L (1.15-1.35) H 12/17/16 10:14 GGT 124 Units/L (9-36) H 12/17/16 10:14 Alkaline Phosphatase 136 Units/L (38-126) H 12/17/16 10:14 Albumin 2.9 g/dL (3.5-5.0) L 12/17/16 10:14 Globulin 4.3 g/dL (2.4-3.5) H 12/17/16 10:14 Albumin/Globulin Ratio 0.7 (1.1-2.2) L 12/17/16 10:14 Urine Clarity Cloudy (Clear) A 12/17/16 10:15 Urine Protein 30 mg/dL (Neg-Trace) H 12/17/16 10:15 Urine Blood Large (Negative) H 12/17/16 10:15 Urine Nitrite Positive (Negative) A 12/17/16 10:15 Ur Leukocyte Esterase Small (Negative) H 12/17/16 10:15 Urine Microscopic RBC 50-100 per hpf (0-3) H 12/17/16 10:15 Urine Microscopic WBC 15-30 per hpf (0-3) H 12/17/16 10:15 Ur Squamous Epith Cells Moderate per lpf (None-Few) H 12/17/16 10:15 Urine Bacteria Moderate per hpf (None-Few) H 12/17/16 10:15 Stool Occult Blood Positive (Negative) A 12/16/16 23:14 Diabetes panel 12/17/16 Range/Units 10:14 Sodium 134 L (136-145) mEq/L Potassium 4.3 (3.5-4.5) mEq/L Chloride 106 (98-109) mEq/L Carbon Dioxide 20 (19-29) mEq/L BUN 28 H (7-20) mg/dL Creatinine 0.92 (0.57-1.11) mg/dL Glucose 134 H (70-99) mg/dL Calcium 10.5 (8.6-10.8) mg/dL AST 21 (5-34) Units/L ALT 35 (0-55) Units/L Alkaline Phosphatase 136 H (38-126) Units/L Albumin 2.9 L (3.5-5.0) g/dL Calcium panel 12/17/16 Range/Units 10:14 Calcium 10.5 (8.6-10.8) mg/dL Phosphorus 2.3 (2.3-4.7) mg/dL Albumin 2.9 L (3.5-5.0) g/dL Pituitary panel 12/17/16 Range/Units 10:14 Sodium 134 L (136-145) mEq/L Potassium 4.3 (3.5-4.5) mEq/L Chloride 106 (98-109) mEq/L Carbon Dioxide 20 (19-29) mEq/L BUN 28 H (7-20) mg/dL Creatinine 0.92 (0.57-1.11) mg/dL Glucose 134 H (70-99) mg/dL Calcium 10.5 (8.6-10.8) mg/dL Adrenal panel 12/17/16 Range/Units 10:14 Sodium 134 L (136-145) mEq/L Potassium 4.3 (3.5-4.5) mEq/L Chloride 106 (98-109) mEq/L Carbon Dioxide 20 (19-29) mEq/L BUN 28 H (7-20) mg/dL Creatinine 0.92 (0.57-1.11) mg/dL Glucose 134 H (70-99) mg/dL Calcium 10.5 (8.6-10.8) mg/dL Total Bilirubin 0.9 D (0.2-1.2) mg/dL AST 21 (5-34) Units/L ALT 35 (0-55) Units/L Alkaline Phosphatase 136 H (38-126) Units/L Albumin 2.9 L (3.5-5.0) g/dL All other labs normal. Consult Discharge Plan - Plan Referrals: Joe Suarez DO [Primary Care Provider] - 12/25/16 1:30 pm Syed Almonte MD [Partnered Physician] - 01/18/17 10:20 am
[2016-12-17 12:44] LABS: Hematocrit 30.4 % (35.3-44.9)
[2016-12-17 12:45] LABS: Hemoglobin 10.3 g/dL (11.5-15.4)
--- NOTE | 2016-12-17 15:41 | Electrocardiograph Report ---
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
[2016-12-17] MEDS ORDERED: Dexamethasone 4 MG/ML VIAL IVP ONE (18:00)
[2016-12-17 18:25] LABS: Hematocrit 29.7 % (35.3-44.9); Hemoglobin 9.8 g/dL (11.5-15.4)
[2016-12-18 01:31] LABS: Hematocrit 26.7 % (35.3-44.9)
[2016-12-18 01:45] LABS: BUN/Creatinine Ratio 26 (6-26); Blood Urea Nitrogen 23 mg/dL (7-20); Calcium 10.4 mg/dL (8.6-10.8); Carbon Dioxide 19 mEq/L (19-29); Chloride 107 mEq/L (98-109); Glucose 180 mg/dL (70-99); Osmolality,Calculated 288 (280-300); Potassium 4.6 mEq/L (3.5-4.5); Sodium 135 mEq/L (136-145); eGFR For African Americans > 60 (> 60); eGFR For Non-African Americans > 60 (> 60)
[2016-12-18] MEDS: Pantoprazole 40 MG VIAL IVP SCH ×2 (05:48→20:36)
[2016-12-18 06:08] LABS: Basophils % 0.1 %; Hematocrit 26.9 % (35.3-44.9); Hemoglobin 9.1 g/dL (11.5-15.4); Lymphocytes # 1.1 K/mcL (0.6-4.6); Lymphocytes % 11.6 %; Mean Corpuscular HGB Conc 33.8 g/dL (31.6-35.5); Mean Corpuscular Hemoglobin 31.4 pg (28.0-33.3); Mean Corpuscular Volume 92.8 fL (83.0-100.0); Mean Platelet Volume 10.2 fL (9.4-12.4); Monocytes # 0.7 K/mcL (0.0-1.3); Monocytes % 7.1 %; Neutrophils # 7.4 K/mcL (1.6-8.9); Platelet Count 102 K/mcL (140-400); Red Cell Distribution Width 18.6 % (11.5-14.5); Segmented Neutrophils % 80.2 %
[2016-12-18 06:25] LABS: Anisocytosis 1+ (Not Present); Platelet Estimate Decreased (Normal)
[2016-12-18 06:26] LABS: Macrocytosis Present (Not Present)
[2016-12-18] MEDS ORDERED: *HR* HYDROcodone/Acet 5/325 mg TABLET PO PRN (08:57)
[2016-12-18] MEDS ORDERED: Naloxone 0.4 MG/ML INJ IVP PRN (11:29)
[2016-12-18] MEDS ORDERED: ALPRAZolam 0.5 MG TABLET PO PRN (11:29)
[2016-12-18] MEDS ORDERED: Prochlorperazine 10 MG/2 ML VIAL IVP PRN (11:29)
[2016-12-18] MEDS ORDERED: 0.9 % Sodium Chloride 1,000 ML IVC SCH (11:29)
[2016-12-18 16:12] LABS: Hematocrit 28.2 % (35.3-44.9); Hemoglobin 9.3 g/dL (11.5-15.4)
[2016-12-18] MEDS: *HR* Morphine 2 MG/ML SYRINGE IVP PRN ×2 (16:19→20:58)
[2016-12-18] MEDS: Nicotine 21 MG PATCH.TD24 TD SCH (16:19)
--- NOTE | 2016-12-18 17:09 | Oncology Inp Progress Note ---
<Francisco Goodman - Last Filed: 12/18/16 18:26> Date of Encounter: 12/18/16 Time of Encounter: 17:09 (1) Acute blood loss anemia Current Visit: Yes Status: Acute Assessment and plan: Likely secondary to perihepatic hematoma, patient received total 3 units of PRBC transfusion during this hospital stay, hemoglobin has been stable. Etiology unclear for her perihepatic hematoma but abdomen CT notes enlarging liver masses. Not sure if her liver lesions on the basis of progressive metastatic disease are pre-existing liver lesions associated with intracapsular hemorrhage. Nevertheless recommend continuation of supportive measures, transfusion support to maintain hemoglobin of 7 or greater. She also has mild thrombocytopenia which is likely due to platelet consumption from hemorrhage but it has been stable, continue to monitor. (2) Urothelial cancer Current Visit: No Status: Acute Assessment and plan: She had maximal debulking of her recurrent disease following initial right nephroureterectomy for urothelial cancer in 2013. Due to her high recurrence risk, she completed a course of 6 cycles of combination chemotherapy adjuvantly with last treatment being on 12/06/16. No acute oncologic intervention needed at this time. We will review her case in our multidisciplinary tumor conference to reassess her liver lesion. Oncology: Subj Interval history: Patient seen and examined. Patient was tolerating diet well, denies abdominal pain at this time. - Constitutional Vitals: Vital Signs Temp Pulse Resp BP Pulse Ox 12/18/16 09:53 73 12/18/16 09:21 77 16 142/68 97 12/18/16 07:20 98.0 F 82 20 121/55 98 12/18/16 07:00 65 12/18/16 03:41 97.8 F 77 16 151/79 97 12/18/16 00:08 97.8 F 85 16 123/55 96 12/17/16 19:16 98.1 F 86 18 138/70 98 Intake and Output 12/18/16 12/18/16 12/18/16 07:59 15:59 23:59 Output Total 200 / 200 Balance -200 / -200 Output: Urine 200 / 200 Other: # Voids 1 Weight 72.9 kg 79.5 kg Patient Weight 12/18/16 23:59 Weight 79.5 kg General appearance: no acute distress, obese - Head Head exam: Present: atraumatic, normal inspection, normocephalic - Eye Eye exam: Present: EOMI, normal appearance, PERRL Pupils: Present: PERRL - ENT ENT exam: Present: mucous membranes dry - Neck Neck exam: Present: full ROM. Absent: lymphadenopathy, tenderness - Respiratory Respiratory exam: Present: CTAB. Absent: accessory muscle use, chest wall tenderness, rales, respiratory distress, wheezes - Cardiovascular Cardiovascular exam: Present: RRR, +S1, +S2. Absent: clicks, systolic murmur - GI/Abdominal GI/Abdominal exam: Present: normal bowel sounds, soft. Absent: rebound, rigid, tenderness - Extremities Exam Extremities exam: Present: normal inspection. Absent: calf tenderness, pedal edema, tenderness - Neurological Exam Neurological exam: Present: alert, CN II-XII intact, oriented X3, no focal deficits. Absent: altered, pronater drift, facial droop - Skin Skin exam: Present: intact, normal color, warm. Absent: abrasion, cyanosis Oncology: Obj Data - Labs CBC & Chem 7: 12/18/16 16:06 12/18/16 00:35 Labs: Laboratory Results - last 24 hr 12/17/16 12/18/16 12/18/16 18:00 00:35 00:35 WBC RBC Hgb 9.8 L 9.0 L Hct 29.7 L 26.7 L MCV MCH MCHC RDW Plt Count MPV Immature Gran % Seg Neutrophils % Lymphocytes % Monocytes % Eosinophils % Basophils % Neutrophils # Lymphocytes # Monocytes # Eosinophils # Basophils # Platelet Estimate Anisocytosis Macrocytosis Sodium 135 L Potassium 4.6 H Chloride 107 Carbon Dioxide 19 BUN 23 H Creatinine 0.87 Est GFR ( Amer) > 60 Est GFR (Non-Af Amer) > 60 BUN/Creatinine Ratio 26 Glucose 180 H Calculated Osmolality 288 Calcium 10.4 Specimen Rejected 12/18/16 12/18/16 12/18/16 00:35 05:40 16:06 WBC 9.2 RBC 2.90 L Hgb 9.1 L 9.3 L Hct 26.9 L 28.2 L MCV 92.8 D MCH 31.4 MCHC 33.8 RDW 18.6 H Plt Count 102 L MPV 10.2 Immature Gran % 1.0 Seg Neutrophils % 80.2 Lymphocytes % 11.6 Monocytes % 7.1 Eosinophils % 0.0 Basophils % 0.1 Neutrophils # 7.4 Lymphocytes # 1.1 Monocytes # 0.7 Eosinophils # 0.0 Basophils # 0.0 Platelet Estimate Decreased L Anisocytosis 1+ A Macrocytosis Present A Sodium Potassium Chloride Carbon Dioxide BUN Creatinine Est GFR ( Amer) Est GFR (Non-Af Amer) BUN/Creatinine Ratio Glucose Calculated Osmolality Calcium Specimen Rejected MCV Delta - ABG Interpretation ABG results: PT/INR, D-dimer PT 14.4 Seconds (9.4-12.1) H 12/16/16 21:58 D-Dimer 1856 ng/mLFEU (0-500) H 12/17/16 10:14 Consult Discharge Plan - Plan Referrals: Joe Suarez DO [Primary Care Provider] - 12/25/16 1:30 pm Syed Almonte MD [Partnered Physician] - 01/18/17 10:20 am <Anthony Piña - Last Filed: 12/19/16 08:22> Date of Encounter: 12/19/16 - Constitutional Vitals: Vital Signs Temp Pulse Resp BP Pulse Ox 12/19/16 07:08 98.2 F 75 18 129/73 95 12/19/16 04:33 98.4 F 77 12 121/56 93 12/18/16 18:55 98.2 F 74 18 124/48 96 12/18/16 09:53 73 12/18/16 09:21 77 16 142/68 97 Intake and Output 12/18/16 12/19/16 12/19/16 16:59 00:59 08:59 Other: Weight 79.5 kg 80.9 kg Patient Weight 12/20/16 00:59 Weight 80.9 kg Oncology: Obj Data - Labs CBC & Chem 7: 12/19/16 04:22 12/19/16 04:22 Labs: Laboratory Results - last 24 hr 12/18/16 12/19/16 12/19/16 16:06 04:22 04:22 WBC 7.7 RBC 3.03 L Hgb 9.3 L 9.4 L Hct 28.2 L 28.5 L MCV 94.1 MCH 31.0 MCHC 33.0 RDW 18.0 H Plt Count 115 L MPV 9.6 Seg Neutrophils % 60.0 Band Neutrophils % 4.0 Lymphocytes % 32.0 Monocytes % 4.0 Neutrophils # 4.9 Lymphocytes # 2.5 Monocytes # 0.3 Toxic Granulation Present A Platelet Estimate Decreased L Macrocytosis Present A Sodium 137 Potassium 4.0 Chloride 108 Carbon Dioxide 23 BUN 19 Creatinine 0.92 Est GFR ( Amer) > 60 Est GFR (Non-Af Amer) > 60 BUN/Creatinine Ratio 21 Glucose 91 Calculated Osmolality 286 Calcium 10.4 Ionized Calcium 1.58 H Phosphorus 2.9 Magnesium 1.5 L Total Bilirubin 0.4 Direct Bilirubin 0.2 Indirect Bilirubin 0.2 AST 22 ALT 40 Alkaline Phosphatase 130 H Serum Total Protein 6.6 Albumin 2.6 L Globulin 4.0 H Albumin/Globulin Ratio 0.7 L - ABG Interpretation ABG results: PT/INR, D-dimer PT 14.4 Seconds (9.4-12.1) H 12/16/16 21:58 D-Dimer 1856 ng/mLFEU (0-500) H 12/17/16 10:14 - Attending Attestation I examined this patient and my medical decision-making was reviewed with the CLEANING AND WASHING EQUIPMENT OPERATOR/PA/Advanced Practice Nurse/Resident Physician. I agree with the documented findings, disposition and treatment plan as described except to the extent set forth below. Patient didn't develop thrombocytopenia due to perihepatic hematoma. Hemoglobin is stabilized after 3 units of packed red cells. She is completely symptomatic today. She anticipates discharge in the coming days. No other new issues. Given stable, now asymptomatic hematoma, I think she can be discharged she is medically optimal otherwise. She is ready arrange for repeat CBC on 12/21/[address] Almonte and outpatient follow-up subsequently. Thanks for involving us in her care.
--- NOTE | 2016-12-18 17:28 | Internal Med Progress Note ---
Date of Encounter: 12/18/16 Time of Encounter: 09:45 - Assessment and plan (1) Acute blood loss anemia Current Visit: Yes Status: Acute Assessment and plan: Patient hemoglobin was 6.8. Secondary to subcapsular hematoma. She received 3 units of PRBC on 12/17. Hemoglobin went up to 10.3 but dropped again to 9. Patient is hemodynamically stable. No need for transfusion at this time. Close monitor hemoglobin every 8 hours. threat monitoring analyst. (2) Liver hematoma Current Visit: Yes Status: Acute Assessment and plan: CT of the abdomen and pelvis without contrast revealed a large collection surrounding the liver measuring 215.316 cm suggestive of subcapsular hematoma. Less dense fluids surrounding the spleen with loculated collections throughout the abdominal cavity with vague nodularity suggestive of carcinomatosis. Appreciate surgery input. Plan: close monitor of hemoglobin. Qualifiers: Encounter type: initial encounter Qualified Code(s): S36.112A - Contusion of liver, initial encounter (3) Urothelial cancer Current Visit: No Status: Acute Assessment and plan: Patient with history of metastatic urothelial carcinoma with metastases to right ovary, and right fallopian tube status post total abdominal hysterectomy, bilateral salpingo-oophorectomy and omentectomy in June 2016. She started systemic therapy for metastatic bladder cancer with carboplatin and Taxol in August 2016. Appreciate oncology input. (4) FANY (acute kidney injury) Current Visit: Yes Status: Resolved Assessment and plan: Secondary to hypovolemia from acute blood loss. Resolved after transfusion and IV fluids. (5) Hypertension Current Visit: Yes Status: Acute Assessment and plan: Well-controlled. Qualifiers: Hypertension type: essential hypertension Qualified Code(s): I10 - Essential (primary) hypertension - Subjective Interval history: patient denies any chest pain, shortness of breath, or abdominal pain. no bleeding. - Constitutional Vitals: Temp Pulse Resp BP Pulse Ox 98.0 F 73 16 142/68 97 12/18/16 07:20 12/18/16 09:53 12/18/16 09:21 12/18/16 09:21 12/18/16 09:21 General appearance: Present: cooperative, A&O X 3, pleasant, no acute distress, answers questions appropriately - Neck Neck exam general surgery: Present: supple, trachea midline. Absent: lymphadenopathy - Respiratory Respiratory exam: Present: CTAB - Cardiovascular Cardiovascular exam: Present: RRR - GI/Abdominal GI/Abdominal exam: Present: normal bowel sounds, soft. Absent: distended, tenderness - Extremities Exam Extremities exam: Absent: pedal edema - Back Exam Back exam: Absent: CVA tenderness (L), CVA tenderness (R) - Neurological Exam Neurological exam: Present: alert, oriented X3, no focal deficits, strengths equal and symetr throughout. Absent: facial droop, speech deficit - Skin Skin exam: Absent: rash Internal Medicine: Result - Labs CBC & Chem 7: 12/18/16 16:06 12/18/16 00:35 Labs: Short CBC 12/17/16 12/18/16 12/18/16 Range/Units 18:00 00:35 05:40 WBC 9.2 (4.3-11.1) K/mcL Hgb 9.8 L 9.0 L 9.1 L (11.5-15.4) g/dL Hct 29.7 L 26.7 L 26.9 L (35.3-44.9) % Plt Count 102 L (140-400) K/mcL Neutrophils # 7.4 (1.6-8.9) K/mcL 12/18/16 Range/Units 16:06 WBC (4.3-11.1) K/mcL Hgb 9.3 L (11.5-15.4) g/dL Hct 28.2 L (35.3-44.9) % Plt Count (140-400) K/mcL Neutrophils # (1.6-8.9) K/mcL BMP 12/18/16 00:35 Sodium 135 L Potassium 4.6 H Chloride 107 Carbon Dioxide 19 BUN 23 H Creatinine 0.87 Glucose 180 H Calcium 10.4 - ABG Interpretation ABG results: PT/INR, D-dimer PT 14.4 Seconds (9.4-12.1) H 12/16/16 21:58 D-Dimer 1856 ng/mLFEU (0-500) H 12/17/16 10:14 - VTE Documentation of Mechanical Device: Intermittent pneumatic compression device Consult Discharge Plan - Plan Referrals: Joe Suarez DO [Primary Care Provider] - 12/25/16 1:30 pm Syed Almonte MD [Partnered Physician] - 01/18/17 10:20 am
[2016-12-19 05:03] LABS: Hematocrit 28.5 % (35.3-44.9); Hemoglobin 9.4 g/dL (11.5-15.4); Mean Corpuscular Volume 94.1 fL (83.0-100.0); Mean Platelet Volume 9.6 fL (9.4-12.4); Platelet Count 115 K/mcL (140-400); Red Blood Count 3.03 M/mcL (3.82-4.97)
[2016-12-19 05:18] LABS: Alanine Aminotransferase 40 Units/L (0-55); Albumin 2.6 g/dL (3.5-5.0); Albumin/Globulin Ratio 0.7 (1.1-2.2); Alkaline Phosphatase 130 Units/L (38-126); Aspartate Amino Transferase 22 Units/L (5-34); BUN/Creatinine Ratio 21 (6-26); Bilirubin,Direct 0.2 mg/dL (0.0-0.5); Bilirubin,Indirect 0.2 mg/dL (0.0-1.2); Bilirubin,Total 0.4 mg/dL (0.2-1.2); Blood Urea Nitrogen 19 mg/dL (7-20); Calcium 10.4 mg/dL (8.6-10.8); Carbon Dioxide 23 mEq/L (19-29); Chloride 108 mEq/L (98-109); Glucose 91 mg/dL (70-99); Magnesium 1.5 mg/dL (1.6-2.6); Osmolality,Calculated 286 (280-300); Phosphorous 2.9 mg/dL (2.3-4.7); Sodium 137 mEq/L (136-145); Total Protein 6.6 g/dL (6.0-8.3); eGFR For African Americans > 60 (> 60); eGFR For Non-African Americans > 60 (> 60)
[2016-12-19 05:26] LABS: Ionized Calcium 1.58 mmol/L (1.15-1.35)
[2016-12-19 05:31] LABS: Lymphocytes # 2.5 K/mcL (0.6-4.6); Monocytes # 0.3 K/mcL (0.0-1.3); Neutrophils # 4.9 K/mcL (1.6-8.9)
[2016-12-19 05:32] LABS: Platelet Estimate Decreased (Normal); Toxic Granulation Present (Not Present)
[2016-12-19 05:33] LABS: Macrocytosis Present (Not Present)
[2016-12-19] MEDS: Pantoprazole 40 MG VIAL IVP SCH (06:17)
[2016-12-19 07:10] VITALS: BP 129/73
[2016-12-19] MEDS: Nicotine 21 MG PATCH.TD24 TD SCH (08:16)
[2016-12-19] MEDS ORDERED: Acetaminophen 325 MG TABLET PO PRN (08:43)
--- NOTE | 2016-12-19 10:07 | Discharge Summary ---
<Kendrick Mason - Last Filed: 12/19/16 14:20> Date of Encounter: 12/19/16 Time of Encounter: 10:05 - Discharge Diagnosis (1) Liver hematoma Priority: Primary Status: Acute Qualifiers: Encounter type: initial encounter Qualified Code(s): S36.112A - Contusion of liver, initial encounter (2) Tachycardia Priority: Secondary Status: Acute (3) Abdominal pain Priority: Secondary Status: Acute Qualifiers: Abdominal location: left upper quadrant Qualified Code(s): R10.12 - Left upper quadrant pain (4) Nausea and vomiting Priority: Secondary Status: Acute Qualifiers: Vomiting type: unspecified Vomiting Intractability: non-intractable Qualified Code(s): R11.2 - Nausea with vomiting, unspecified (5) DVT prophylaxis Priority: Secondary Status: Acute (6) FANY (acute kidney injury) Priority: Secondary Status: Resolved (7) Acute blood loss anemia Priority: Secondary Status: Acute (8) Urothelial cancer Priority: Secondary Status: Acute - Discharge Medications Prescriptions: HYDROcodone/Acet 5/325 mg [[place] 5-325 mg] 1 tab PO Q4H PRN #16 tab PRN Reason: Pain Home Medications: ALPRAZolam [Xanax 0.5 MG Tablet] 0.5 mg PO BID PRN #60 tablet 08/10/16 [Rx] Lisinopril [Zestril] 10 mg PO DAILY 08/10/16 [History] Dexamethasone [Decadron] 4 mg PO BID #36 tab 08/13/16 [Rx] Loratadine [Claritin] 10 mg PO AD PRN #10 tablet 08/13/16 [Rx] Magic Mouthwash [Magic Mouthwash BLM] 10 ml PO QID PRN #240 ml 08/13/16 [Rx] Ondansetron [Zofran] 4 mg PO Q8HR PRN #90 tablet 08/13/16 [Rx] Prochlorperazine Maleate [Compazine] 10 mg PO Q8HR #90 tablet 08/13/16 [Rx] Nicotine Patch [Nicoderm] 21 mg TD DAILY #28 patch.td24 10/04/16 [Rx] HYDROcodone/Acet 5/325 mg [[place] 5-325 mg] 1 tab PO Q4H PRN #16 tab 12/19/16 [Rx ] Allergies/Adverse Reactions: Allergies No Known Allergies Allergy (Verified 09/13/16 13:50) Procedures/tests Complete & Pending: Procedures Performed prior 72 hours Category Date Time Status ECG 12 lead ECG [ECG] Routine Y 12/16/16 22:04 Completed Date of admission: 12/17/16 04:38 Primary care physician: Joe Suarez Consults: ONCOLOGY [facility] Discharging clinician: Kendrick Mason Anticipated date of discharge: 12/19/16 - Patient Status Disposition: Home, Self-Care Condition: Good Functional capacity at discharge: independent ambulation Overall status at discharge: patient is progressing back to baseline - Discharge Instructions Instructions: Hydrocodone/Acetaminophen (By mouth), Chronic Hypertension (DC), Anemia (GEN) Follow Up With: Joe Suarez DO [Primary Care Provider] - 12/25/16 1:30 pm Syed Almonte MD [Partnered Physician] - 01/18/17 10:20 am Additional Instructions: Please return to ER if he had lightheadedness, blurry vision, chest pain, abdominal pain, nausea, vomiting. Please follow up with oncologist appointment tomorrow. Please follow up with primary care physician. - Diet and Activity Activity: increase activity as tolerated Diet: advance to your usual diet Interval History: 61-year-old female with history of urothelial cancer presents with fatigue, weakness for the past weekend. Patient also had shortness of breath. She just underwent her sixth cycle of chemotherapy on December 06 and had accompanying nausea, vomiting, diarrhea. Patient reported right flank pain that has been chronic. On CBC she was found to have a hemoglobin of 7.5. CT of the abdomen showed a large fluid collection around the liver measuring 21 cm x 5.3 cm x 16 cm. This was a liver intracapsular hematoma. CT shows liver metastasis. Patient was given vitamin K as her INR was 21.3. She was given 3 packed red blood cells and started on IV Protonix. Patient also had a chaotic and she was started on IV fluids. Oncologist consult to evaluate if patient. Oncology will discuss patient's case in tumor Board before getting further recommendations. Patient was found to have urothelial cancer in 2013 and underwent maximal debulking and 6 cycles of chemotherapy. Gen. surgery recommended no invasive treatment at this time. They did note carcinomatosis. Over the course of the stay patient's hemoglobin stabilized. At this time is 9.3. She denies any lightheadedness, dizziness, chest pain, reports mild left upper quadrant pain, shortness of breath, difficulty urinating, constipation, diarrhea. She is able to ambulate on her own. She has a good appetite. Patient has ready for discharge. Plan: Patient will follow-up with oncology tomorrow for repeat CBC. She will also follow up with her primary care physician in the next 5-7 days. Hospital course: Ms. Weaver is a 61 year old female - Time Spent with Patient Total time spent providing and/or coordinating discharge services: - Constitutional Vitals: Temp Pulse Resp BP Pulse Ox 98.2 F 75 18 129/73 95 12/19/16 07:08 12/19/16 07:08 12/19/16 07:08 12/19/16 07:08 12/19/16 07:08 General appearance: Present: cooperative, A&O X 3, pleasant, no acute distress, answers questions appropriately - Eye Eye exam: Present: PERRL, conjuntiva pink, sclera anicteric - Neck Neck exam general surgery: Present: supple, trachea midline. Absent: lymphadenopathy - Respiratory Respiratory exam: Present: CTAB. Absent: accessory muscle use, rales, rhonchi, wheezes - Cardiovascular Cardiovascular exam: Present: RRR, +S1, +S2. Absent: diastolic murmur, gallop, rubs, systolic murmur - GI/Abdominal GI/Abdominal exam: Present: normal bowel sounds, soft, tenderness (mild LUQ chronic), no peritoneal signs. Absent: distended Additional comments: mid abdominal scar previous surgery - Extremities Exam Extremities exam: Present: warm, radial pulses palpable and symetrical. Absent : calf tenderness, cyanotic, pedal edema - Neurological Exam Neurological exam: Present: CN II-XII intact, oriented X3, no focal deficits. Absent: pronater drift, facial droop, speech deficit - Skin Skin exam: Present: dry, intact - VTE Documentation of Mechanical Device: Intermittent pneumatic compression device <Bishnu Davenport - Last Filed: 12/19/16 17:21> Date of Encounter: 12/19/16 - Discharge Diagnosis (1) Liver hematoma Priority: Primary Status: Acute Qualifiers: Encounter type: subsequent encounter Qualified Code(s): S36.112D - Contusion of liver, subsequent encounter (2) Subcapsular hematoma of liver Priority: Primary Status: Acute (3) Acute blood loss anemia Priority: Secondary Status: Acute (4) Hypertension Priority: Secondary Status: Chronic Qualifiers: Hypertension type: essential hypertension Qualified Code(s): I10 - Essential (primary) hypertension (5) Urothelial cancer Priority: Secondary Status: Chronic Procedures/tests Complete & Pending: Procedures Performed prior 72 hours Category Date Time Status ECG 12 lead ECG [ECG] Routine Y 12/16/16 22:04 Completed Date of admission: 12/17/16 04:38 Primary care physician: Joe Suarez [facility] course: Ms. Weaver is a 61 year old female - Time Spent with Patient Total time spent providing and/or coordinating discharge services: 39min - Constitutional Vitals: Temp Pulse Resp BP Pulse Ox 98.2 F 75 18 129/73 95 12/19/16 07:08 12/19/16 07:08 12/19/16 07:08 12/19/16 07:08 12/19/16 07:08 - Attending Attestation I examined this patient and my medical decision-making was reviewed with the Resident Physician on 12/19/16. I agree with the documented findings, disposition and treatment plan as described except to the extent set forth below. Ms. Weaver had been admitted for acute subcapsular liver hematoma and anemia. She is feeling OK at this time but is having some pain in back around liver. No fever or chills. Vitals stable. at bedside. She is ready for discharge. Exam Alert. Comfortable Heart reg No wheeze Plan D/C today Check UA with culture prior to d/c [place] for pain
[2016-12-19 10:15] LABS: Bilirubin,Urine Negative (Negative); Blood,Urine Moderate (Negative); Clarity,Urine Cloudy (Clear); Color,Urine Yellow (Yellow); Glucose,Urine (UA) Normal (Normal); Ketones,Urine Negative (Negative); Leukocyte Esterase,Urine Negative (Negative); Nitrite,Urine Positive (Negative); PH,Urine 5.5 pH Units (5.0-8.0); Protein,Urine 30 mg/dL (Neg-Trace); Specific Gravity,Urine 1.024 (1.010-1.025); Urobilinogen,Urine Normal (Normal)
[2016-12-19 10:17] LABS: Bacteria,Urine None Seen per hpf (None-Few); Hyaline Casts,Urine None Seen per lpf (None-Few); Squamous Epithelial Cell,Urine Many per lpf (None-Few)
== END 2016-12-19 12:20 | disposition home or self-care (01) | DRG 442 ==
LOC: EMEROO 20:52 → 2ANU 20:52 → 2NNU 12-17 01:27 → SUATTDRO 12-17 04:38 → 2NENU 12-18 09:36
PROVIDERS: ADMIT Internal Medicine; ATTEND Internal Medicine

== ENCOUNTER 2016-12-29 14:41 | Inpatient (IN) ==
[2016-12-29] MEDS ORDERED: 0.9 % Sodium Chloride 1,000 ML IVC ONE (15:01)
--- NOTE | 2016-12-29 15:04 | Emergency Department Note ---
Disposition Clinical Impression: Urinary tract infection Qualifiers: Urinary tract infection type: acute cystitis Hematuria presence: without hematuria Qualified Code(s): N30.00 - Acute cystitis without hematuria Altered mental status Qualifiers: Altered mental status type: unspecified Qualified Code(s): R41.82 - Altered mental status, unspecified Disposition: Admitted As Inpatient Condition: Fair Referrals: Joe Suarez DO [Primary Care Provider] - Forms: ED Satisfaction Letter Time of Disposition: 16:05 Fever HPI - General Chief Complaint: ED Fever Stated Complaint: AMS Time Seen by Provider: 12/29/16 14:58 Source: patient Limitations: no limitations Nursing Notes Reviewed: Yes Vital Signs Reviewed: Yes - History of Present Illness HPI Narrative: 61-year-old with a history of metastatic urothelial cancer. Patient has had recurrence. Patient is receiving chemotherapy her last chemotherapy was beginning of December. Today she's had a fever and urinary symptoms. Family members called oncology and they were concerned she may have a UTI and sent her in for further evaluation. Pt Subjective Complaint: fever Onset (ago): Just [employer] Context: on chemotherapy Associated symptoms: Reports: chills, dyspnea Improves with: acetaminophen Worsens with: nothing - Related Data Home Medications Medication Instructions Recorded Confirmed Lisinopril [Zestril] 10 mg PO DAILY 08/10/16 12/17/16 Previous Rx's Medication Instructions Recorded ALPRAZolam [Xanax 0.5 MG Tablet] 0.5 mg PO BID PRN #60 tablet 08/10/16 Dexamethasone [Decadron] 4 mg PO BID #36 tab 08/13/16 Loratadine [Claritin] 10 mg PO AD PRN #10 tablet 08/13/16 Magic Mouthwash [Magic Mouthwash 10 ml PO QID PRN #240 ml 08/13/16 BLM] Ondansetron [Zofran] 4 mg PO Q8HR PRN #90 tablet 08/13/16 Prochlorperazine Maleate 10 mg PO Q8HR #90 tablet 08/13/16 [Compazine] Nicotine Patch [Nicoderm] 21 mg TD DAILY #28 patch.td24 10/04/16 HYDROcodone/Acet 5/325 mg [[place] 1 tab PO TID #90 tab 12/24/16 5-325 mg] Oxycodone HCl 10 mg PO BID #60 tab 12/27/16 Allergies Allergy/AdvReac Type Severity Reaction Status Date / Time No Known Allergies Allergy Verified 09/13/16 13:50 Constitutional: Reports: fever. Denies: chills, weakness, weight change Eyes: Denies: eye pain, eye discharge, vision change ENT ED: Denies: ear pain, throat pain, dental pain, hearing loss, epistaxis, congestion, dysphagia Cardiovascular: Denies: chest pain, palpitations, dyspnea on exertion, edema, syncope Respiratory: Denies: cough, dyspnea, wheezes, hemoptysis, stridor Gastrointestinal: Denies: abdominal pain, nausea, vomiting, diarrhea, constipation, hematemesis, melena, hematochezia Genitourinary: Reports: dysuria. Denies: frequency, hematuria, discharge Musculoskeletal: Denies: back pain, neck pain, arthralgia, myalgia Integumentary: Denies: rash, abrasion, lesions Neurological: Denies: headache, weakness, numbness, paresthesias, confusion, abnormal gait, vertigo Psychiatric: Denies: anxiety, depression, suicidal thoughts, homicidal thoughts , auditory hallucinations, visual hallucinations Endocrine: Denies: fatigue Hematological/Lymphatic: Denies: easy bleeding, easy bruising Allergic/Immunologic: Denies: facial swelling, urticaria Fever PMH - Past Medical History Medical history: Reports: cancer, hypertension, malignancy, renal disease Surgical history: Reports: hysterectomy, other Psychiatric history: Reports: no psych history - Social History Smoking Status: Former smoker Alcohol use: Reports: none Drug use: Reports: none Physical Exam - General Limitations: no limitations General appearance: alert - Head Head exam: atraumatic, normocephalic, normal inspection - Eye Eye exam: Present: normal appearance, PERRL, EOMI - ENT ENT exam: normal exam, normal oropharynx, mucous membranes moist - Neck Neck exam: Present: normal inspection, full ROM, trachea midline - Chest Chest inspection: Present: normal inspection, symmetric chest wall rise - Respiratory Respiratory exam: Present: normal lung sounds bilaterally - Cardiovascular Cardiovascular exam: Present: regular rate, normal rhythm, normal heart sounds - Abdominal Exam Abdominal exam: Present: soft, Non-Tender. Absent: tenderness, distention, guarding, rebound, rigidity - Extremities Exam Extremities exam: Present: normal inspection, full ROM. Absent: tenderness, pedal edema - Expanded Lower Extremity Exam Neurovascular/Tendon exam: Absent: motor deficit, sensory deficit, tendon deficit Gait: observed and normal - Back Exam Back exam: Present: normal inspection, full ROM. Absent: tenderness - Neurological Exam Neurological exam: Present: alert, oriented X3 - Psychiatric Psychiatric exam: Present: normal affect, normal mood - Skin Skin exam: Present: warm, dry, intact, normal color Course - Reevaluation(s) Reevaluation #1: 61-year-old with ongoing cancer treatment who comes in with some altered mental status and Tums. The patient is vital signs do not meet sepsis criteria she slightly tachycardic normal respiratory rate. Her lactate level is normal. Have evidence of UTI. We will admit for IV antibiotics. Time: 16:16 - Consultations Consultation #1: Discussed with , admit. Time: 16:16 Vital Signs Temperature 98.7 F 12/29/16 14:46 Pulse Rate 103 12/29/16 14:46 Respiratory Rate 16 12/29/16 14:46 Blood Pressure 126/76 12/29/16 14:46 O2 Sat by Pulse Oximetry 97 12/29/16 14:46 Temperature 98.7 F 12/29/16 14:46 Pulse Rate 103 12/29/16 14:46 Respiratory Rate 16 12/29/16 14:46 Blood Pressure 126/76 12/29/16 14:46 O2 Sat by Pulse Oximetry 97 12/29/16 14:46 Oxygen Delivery Oxygen Delivery Room Air Fever - Lab Data Lab results reviewed: Yes I reviewed the patient's lab results. Result diagrams: 12/29/16 15:20 12/29/16 15:20 Lab Results 12/29/16 12/29/16 12/29/16 Range/Units 15:20 15:20 15:20 WBC 7.3 (4.3-11.1) K/mcL RBC 3.18 L (3.82-4.97) M/mcL Hgb 9.9 L (11.5-15.4) g/dL Hct 30.7 L (35.3-44.9) % MCV 96.5 (83.0-100.0) fL MCH 31.1 (28.0-33.3) pg MCHC 32.2 (31.6-35.5) g/dL RDW 17.2 H (11.5-14.5) % Plt Count 320 D (140-400) K/mcL MPV 8.8 L (9.4-12.4) fL Immature Gran % 0.6 (0-4) % Seg Neutrophils % 88.3 % Lymphocytes % 5.2 % Monocytes % 5.5 % Eosinophils % 0.1 % Basophils % 0.3 % Neutrophils # 6.4 (1.6-8.9) K/mcL Lymphocytes # 0.4 L (0.6-4.6) K/mcL Monocytes # 0.4 (0.0-1.3) K/mcL Eosinophils # 0.0 (0.0-0.6) K/mcL Basophils # 0.0 (0.0-0.2) K/mcL PT 17.1 H (9.4-12.1) Seconds INR 1.6 Sodium 133 L (136-145) mEq/L Potassium 3.9 (3.5-4.5) mEq/L Chloride 102 (98-109) mEq/L Carbon Dioxide 24 (19-29) mEq/L BUN 26 H (7-20) mg/dL Creatinine 0.96 (0.57-1.11) mg/dL Est GFR ( Amer) > 60 (> 60) Est GFR (Non-Af Amer) 59 L (> 60) BUN/Creatinine Ratio 27 H (6-26) Glucose 115 H (70-99) mg/dL Calculated Osmolality 282 (280-300) Lactic Acid (0.5-2.2) mmol/L Calcium 10.8 (8.6-10.8) mg/dL Total Bilirubin 1.1 (0.2-1.2) mg/dL Direct Bilirubin 0.6 H (0.0-0.5) mg/dL Indirect Bilirubin 0.5 (0.0-1.2) mg/dL AST 65 H (5-34) Units/L ALT 92 H (0-55) Units/L Alkaline Phosphatase 281 H (38-126) Units/L Ammonia (18-72) mcmol/L Troponin I (0-0.03) ng/mL Serum Total Protein 7.2 (6.0-8.3) g/dL Albumin 2.4 L (3.5-5.0) g/dL Globulin 4.8 H (2.4-3.5) g/dL Albumin/Globulin Ratio 0.5 L (1.1-2.2) Urine Color (Yellow) Urine Clarity (Clear) Urine pH (5.0-8.0) pH Units Ur Specific [place] (1.010-1.025) Urine Protein (Neg-Trace) mg/dL Urine Glucose (UA) (Normal) mg/dL Urine Ketones (Negative) mg/dL Urine Blood (Negative) Urine Nitrite (Negative) Urine Bilirubin (Negative) Urine Urobilinogen (Normal) mg/dL Ur Leukocyte Esterase (Negative) Urine Microscopic RBC (0-3) per hpf Urine Microscopic WBC (0-3) per hpf Ur Squamous Epith Cells (None-Few) per lpf Calcium Oxalate Crystal Urine Bacteria (None-Few) per hpf Hyaline Casts (None-Few) per lpf Ur Culture Indicated? (NO) 12/29/16 12/29/16 12/29/16 Range/Units 15:20 15:20 15:34 WBC (4.3-11.1) K/mcL RBC (3.82-4.97) M/mcL Hgb (11.5-15.4) g/dL Hct (35.3-44.9) % MCV (83.0-100.0) fL MCH (28.0-33.3) pg MCHC (31.6-35.5) g/dL RDW (11.5-14.5) % Plt Count (140-400) K/mcL MPV (9.4-12.4) fL Immature Gran % (0-4) % Seg Neutrophils % % Lymphocytes % % Monocytes % % Eosinophils % % Basophils % % Neutrophils # (1.6-8.9) K/mcL Lymphocytes # (0.6-4.6) K/mcL Monocytes # (0.0-1.3) K/mcL Eosinophils # (0.0-0.6) K/mcL Basophils # (0.0-0.2) K/mcL PT (9.4-12.1) Seconds INR Sodium (136-145) mEq/L Potassium (3.5-4.5) mEq/L Chloride (98-109) mEq/L Carbon Dioxide (19-29) mEq/L BUN (7-20) mg/dL Creatinine (0.57-1.11) mg/dL Est GFR ( Amer) (> 60) Est GFR (Non-Af Amer) (> 60) BUN/Creatinine Ratio (6-26) Glucose (70-99) mg/dL Calculated Osmolality (280-300) Lactic Acid 1.0 (0.5-2.2) mmol/L Calcium (8.6-10.8) mg/dL Total Bilirubin (0.2-1.2) mg/dL Direct Bilirubin (0.0-0.5) mg/dL Indirect Bilirubin (0.0-1.2) mg/dL AST (5-34) Units/L ALT (0-55) Units/L Alkaline Phosphatase (38-126) Units/L Ammonia (18-72) mcmol/L Troponin I 0.01 (0-0.03) ng/mL Serum Total Protein (6.0-8.3) g/dL Albumin (3.5-5.0) g/dL Globulin (2.4-3.5) g/dL Albumin/Globulin Ratio (1.1-2.2) Urine Color Dark Yellow (Yellow) Urine Clarity Cloudy A (Clear) Urine pH 5.5 (5.0-8.0) pH Units Ur Specific [place] 1.030 H (1.010-1.025) Urine Protein 100 H (Neg-Trace) mg/dL Urine Glucose (UA) Normal (Normal) mg/dL Urine Ketones Trace H (Negative) mg/dL Urine Blood Large H (Negative) Urine Nitrite Positive A (Negative) Urine Bilirubin Small H (Negative) Urine Urobilinogen Normal (Normal) mg/dL Ur Leukocyte Esterase Small H (Negative) Urine Microscopic RBC 15-30 H (0-3) per hpf Urine Microscopic WBC 50-100 H (0-3) per hpf Ur Squamous Epith Cells Many H (None-Few) per lpf Calcium Oxalate Crystal Present Urine Bacteria Moderate H (None-Few) per hpf Hyaline Casts Moderate H (None-Few) per lpf Ur Culture Indicated? YES A (NO) 12/29/16 Range/Units 15:52 WBC (4.3-11.1) K/mcL RBC (3.82-4.97) M/mcL Hgb (11.5-15.4) g/dL Hct (35.3-44.9) % MCV (83.0-100.0) fL MCH (28.0-33.3) pg MCHC (31.6-35.5) g/dL RDW (11.5-14.5) % Plt Count (140-400) K/mcL MPV (9.4-12.4) fL Immature Gran % (0-4) % Seg Neutrophils % % Lymphocytes % % Monocytes % % Eosinophils % % Basophils % % Neutrophils # (1.6-8.9) K/mcL Lymphocytes # (0.6-4.6) K/mcL Monocytes # (0.0-1.3) K/mcL Eosinophils # (0.0-0.6) K/mcL Basophils # (0.0-0.2) K/mcL PT (9.4-12.1) Seconds INR Sodium (136-145) mEq/L Potassium (3.5-4.5) mEq/L Chloride (98-109) mEq/L Carbon Dioxide (19-29) mEq/L BUN (7-20) mg/dL Creatinine (0.57-1.11) mg/dL Est GFR ( Amer) (> 60) Est GFR (Non-Af Amer) (> 60) BUN/Creatinine Ratio (6-26) Glucose (70-99) mg/dL Calculated Osmolality (280-300) Lactic Acid (0.5-2.2) mmol/L Calcium (8.6-10.8) mg/dL Total Bilirubin (0.2-1.2) mg/dL Direct Bilirubin (0.0-0.5) mg/dL Indirect Bilirubin (0.0-1.2) mg/dL AST (5-34) Units/L ALT (0-55) Units/L Alkaline Phosphatase (38-126) Units/L Ammonia 31 (18-72) mcmol/L Troponin I (0-0.03) ng/mL Serum Total Protein (6.0-8.3) g/dL Albumin (3.5-5.0) g/dL Globulin (2.4-3.5) g/dL Albumin/Globulin Ratio (1.1-2.2) Urine Color (Yellow) Urine Clarity (Clear) Urine pH (5.0-8.0) pH Units Ur Specific [place] (1.010-1.025) Urine Protein (Neg-Trace) mg/dL Urine Glucose (UA) (Normal) mg/dL Urine Ketones (Negative) mg/dL Urine Blood (Negative) Urine Nitrite (Negative) Urine Bilirubin (Negative) Urine Urobilinogen (Normal) mg/dL Ur Leukocyte Esterase (Negative) Urine Microscopic RBC (0-3) per hpf Urine Microscopic WBC (0-3) per hpf Ur Squamous Epith Cells (None-Few) per lpf Calcium Oxalate Crystal Urine Bacteria (None-Few) per hpf Hyaline Casts (None-Few) per lpf Ur Culture Indicated? (NO) - Radiology Data Radiology results reviewed: Yes I reviewed the patient's radiology results. Chest X-Ray 12/29/16 15:02 IMPRESSION: 1. No acute cardiopulmonary process. 2. Chronic asymmetric elevation in the right diaphragm. D/ / 12/29/2016 15:27:13 Noé Coronado MD / Mora Wheeler Interpreting Provider: Noé Coronado MD - EKG Data EKG attestation: Yes I reviewed and interpreted this EKG. EKG shows normal: sinus rhythm Rate: normal Rhythm: NSR Interpretation: no acute changes
[2016-12-29 15:36] LABS: Basophils % 0.3 %; Eosinophils % 0.1 %; Hematocrit 30.7 % (35.3-44.9); Hemoglobin 9.9 g/dL (11.5-15.4); Immature Granulocytes % 0.6 % (0-4); Lymphocytes # 0.4 K/mcL (0.6-4.6); Lymphocytes % 5.2 %; Mean Corpuscular HGB Conc 32.2 g/dL (31.6-35.5); Mean Corpuscular Hemoglobin 31.1 pg (28.0-33.3); Mean Corpuscular Volume 96.5 fL (83.0-100.0); Mean Platelet Volume 8.8 fL (9.4-12.4); Monocytes # 0.4 K/mcL (0.0-1.3); Monocytes % 5.5 %; Neutrophils # 6.4 K/mcL (1.6-8.9); Platelet Count 320 K/mcL (140-400); Red Blood Count 3.18 M/mcL (3.82-4.97); Red Cell Distribution Width 17.2 % (11.5-14.5); Segmented Neutrophils % 88.3 %
[2016-12-29 15:45] LABS: Bilirubin,Urine Small (Negative); Blood,Urine Large (Negative); Clarity,Urine Cloudy (Clear); Color,Urine Dark Yellow (Yellow); Glucose,Urine (UA) Normal (Normal); Ketones,Urine Trace mg/dL (Negative); Leukocyte Esterase,Urine Small (Negative); Nitrite,Urine Positive (Negative); PH,Urine 5.5 pH Units (5.0-8.0); Protein,Urine 100 mg/dL (Neg-Trace); Urobilinogen,Urine Normal (Normal)
[2016-12-29 15:48] LABS: Bacteria,Urine Moderate per hpf (None-Few); Hyaline Casts,Urine Moderate per lpf (None-Few); RBC,Urine 15-30 per hpf (0-3); Squamous Epithelial Cell,Urine Many per lpf (None-Few); WBC,Urine 50-100 per hpf (0-3)
[2016-12-29 15:52] LABS: INR 1.6; Prothrombin Time 17.1 Seconds (9.4-12.1)
[2016-12-29] MEDS ORDERED: Piperacillin/Tazobactam 3.375 GM in D5% in Water (Mini-Bag+) 100 ML IVPB ONE (15:55)
[2016-12-29 15:58] LABS: Alanine Aminotransferase 92 Units/L (0-55); Albumin 2.4 g/dL (3.5-5.0); Albumin/Globulin Ratio 0.5 (1.1-2.2); Alkaline Phosphatase 281 Units/L (38-126); Aspartate Amino Transferase 65 Units/L (5-34); BUN/Creatinine Ratio 27 (6-26); Bilirubin,Direct 0.6 mg/dL (0.0-0.5); Bilirubin,Indirect 0.5 mg/dL (0.0-1.2); Bilirubin,Total 1.1 mg/dL (0.2-1.2); Blood Urea Nitrogen 26 mg/dL (7-20); Calcium 10.8 mg/dL (8.6-10.8); Carbon Dioxide 24 mEq/L (19-29); Chloride 102 mEq/L (98-109); Globulin 4.8 g/dL (2.4-3.5); Glucose 115 mg/dL (70-99); Osmolality,Calculated 282 (280-300); Potassium 3.9 mEq/L (3.5-4.5); Sodium 133 mEq/L (136-145); Total Protein 7.2 g/dL (6.0-8.3); eGFR For African Americans > 60 (> 60); eGFR For Non-African Americans 59 (> 60)
[2016-12-29 16:00] LABS: Calcium Oxalate Crystals,Urine Present
[2016-12-29] MEDS ORDERED: *HR* HYDROmorphone (PF) 1 MG/ML SYRINGE IVP ONE (16:09)
[2016-12-29] MEDS ORDERED: Ondansetron 4 MG/2 ML VIAL IVP ONE (16:09)
[2016-12-29] MEDS ORDERED: Naloxone 0.4 MG/ML INJ IVP PRN (17:09)
[2016-12-29] MEDS ORDERED: Ondansetron 4 MG/2 ML VIAL IVP PRN (17:09)
[2016-12-29] MEDS ORDERED: Magic Mouthwash 10 ML UD Cup PO PRN (17:12)
[2016-12-29] MEDS ORDERED: Loratadine 10 MG TABLET PO PRN (17:12)
[2016-12-29] MEDS ORDERED: ALPRAZolam 0.5 MG TABLET PO PRN (17:12)
--- NOTE | 2016-12-29 17:29 | Internal Med History&Physical ---
<AngelKevyn Nieves - Last Filed: 12/29/16 18:21> Date of Encounter: 12/29/16 Time of Encounter: 17:00 Assessment and Plan (1) Sepsis Current visit: Yes Status: Acute Assess: Ms. Weaver presents with chief complaint of UTI symptoms and altered mental status. Patient reports these symptoms began approximately 24 hours ago and her urine is dark in color and has strong odor. Patient also reports no burning with urination, but frequency. Mrs. Weaver reports having a fever of 102 F last night and 101.6 today. Patient also reports nausea, lightheadedness and unsteadiness, and some SOB within the past 24 hours as well. Patient currently meets sepsis criteria based on infection of unknown organism, HR >90, and fever of 101.6. Plan: Blood cultures ordered Urine cultures ordered Continue IV fluids at 100 ml/HR IV Levaquin 500 mg daily ordered for infection coverage until culture results are available Supplemental O2 Repeat lactic acid Repeat INR/APTT Follow sepsis protocol Patient and vital signs to be monitored closely Qualifiers: Sepsis type: sepsis due to unspecified organism Qualified Code(s): A41.9 - Sepsis, unspecified organism (2) Altered mental status Current visit: Yes Status: Acute Assess: Ms. Weaver presents with chief complaint of UTI symptoms and altered mental status. Patient currently meets sepsis criteria based on infection of unknown organism, HR >90, and fever of 101.6. Plan: Blood cultures ordered Urine cultures ordered Continue IV fluids at 100 ml/HR IV Levaquin 500 mg daily ordered for infection coverage until culture results are available Supplemental O2 Repeat lactic acid Repeat INR/APTT Follow sepsis protocol Patient and vital signs to be monitored closely Qualifiers: Altered mental status type: unspecified Qualified Code(s): R41.82 - Altered mental status, unspecified (3) Urinary tract infection Current visit: Yes Status: Acute Assess: Patient presents with symptomotogy of UTI including urinary frequency, fever, and altered mental status. Patient currently meets sepsis criteria based on infection of unknown organism, HR >90, and fever of 101.6. Plan: Urine cultures ordered IV Levaquin 500 mg daily ordered for infection coverage until culture results are available Sepsis protocol to be followed Qualifiers: Urinary tract infection type: acute cystitis Hematuria presence: without hematuria Qualified Code(s): N30.00 - Acute cystitis without hematuria (4) Abdominal pain Current visit: No Status: Acute Assess: Patient presents with right upper quadrant pain which she reports radiates to right flank. This pain is most likely due to hematoma of the liver which was found to have bleeding and the capsule December 16 which caused a drop in patient's hemoglobin causing acute blood loss anemia. Plan: STAT CT scan of abdomen/pelvis w/o contrast ordered HTN medication held IV fluids @ 100 ml/HR ordered Pharmacological DVT prophylaxis contraindicated (patient will receive mechanical prophylaxis) H/H ordered Type and screen ordered for possible transfusion Follow-up labs ordered Patient to be monitored closely Qualifiers: Abdominal location: left upper quadrant Qualified Code(s): R10.12 - Left upper quadrant pain (5) Tachycardia Current visit: Yes Status: Acute Assess: Patient presents with mild tachycardia, most likely related to UTI infection and acute blood loss anemia. Plan: IV fluids @ 100 ml/HR ordered Continuous cardiac telemetry ordered Repeat EKG ordered Monitor patient and patient's vital signs (6) Liver hematoma Current visit: Yes Status: Chronic Assess: Patient presents with hematoma of the liver which was found to have bleeding and the capsule December 16 which caused a drop in patient's hemoglobin causing acute blood loss anemia. Plan: CT scan of the abdomen/pelvis w/o contrast ordered Repeat H/H ordered Type and screen ordered for possible transfusion if needed Qualifiers: Encounter type: subsequent encounter Qualified Code(s): S36.112D - Contusion of liver, subsequent encounter (7) Urothelial cancer Current visit: Yes Status: Chronic Assess: Patient presents with history of urothelial carcinoma. Plan: Patient to be followed by oncology. (8) DVT prophylaxis Current visit: No Status: Acute Assess: Pharmacological DVT prophylaxis is contraindicated in this patient due to possible bleed from liver hematoma. Plan: Anti-embolic stockings ordered Internal Medicine - H&P: HPI Chief complaint: UTI/AMS Admitted From: Emergency Dept Plans for Post Hospital Care: Home History of present illness: Ms. Weaver is a 61 year old female presents from the ED with chief complaint of UTI symptoms and altered mental status. Patient reports these symptoms began approximately 24 hours ago and her urine is dark in color and has strong odor. Patient also reports no burning with urination, but frequency. Mrs. Weaver reports having a fever of 102 F last night and 101.6 today. Patient also reports nausea, lightheadedness and unsteadiness, and some SOB within the past 24 hours as well. Patient currently meets sepsis criteria based on infection of unknown organism, HR >90, and fever of 101.6. Patient is to be admitted as inpatient status with continuous cardiac telemetry, supplemental O2, Levaquin IV 500 mg daily for infection coverage, ordered cultures for blood and urine, fecal occult; follow-up labs on lactic acid, INR, APTT, and CBC; H/H, and type and screen. Patient is falls precautions and bed rest due to current instability and will receive mechanical DVT prophylaxis due to possible bleed of unknown source. Patient to be monitored closely per sepsis protocol. Past Med Surg Social Fam HX - Past Medical History Source: patient Medical history: cancer, hypertension, malignancy, renal disease (Patient had right kidney removed 2.5 years ago) Psychiatric history: no psych history - Past Surgical History Surgical History: cholecystectomy, hysterectomy, other (Removal of right kidney , bladder resection) - Social History Smoking Status: Former smoker (Reports quitting 2-3 months ago) Packs per day: 1 PPD Smokeless Tobacco Status: No Alcohol use: none Drug use: none Occupational status: unemployed Current living situation: Home, With Family Activity Level: Independent ambulation Recent Out of Country Travel Within the Last 8 Weeks: No Exposure or Possible Exposure to Illness During Travel: No - Family History Mother Race: Family Member Ethnicity: Non- Living Status: Still Living Hx Family Cardiac Disorders: Yes (HTN) Hx Family Respiratory Disorders: Yes (COPD) Hx Family Cancer: Yes (Cervical, bladder cancer) Father Race: Family Member Ethnicity: Non- Living Status: Age at : 67 Cause of : Leukemia Hx Family Cancer: Yes (Leukemia) Brother Race: Family Member Ethnicity: Non- Living Status: Still Living Hx Family Medical Disorders: No Internal Medicine - H&P: Meds ALPRAZolam [Xanax 0.5 MG Tablet] 0.5 mg PO BID PRN #60 tablet 08/10/16 [Rx] Lisinopril [Zestril] 10 mg PO DAILY 08/10/16 [History] Loratadine [Claritin] 10 mg PO AD PRN #10 tablet 08/13/16 [Rx] Magic Mouthwash [Magic Mouthwash BLM] 10 ml PO QID PRN #240 ml 08/13/16 [Rx] Ondansetron [Zofran] 4 mg PO Q8HR PRN #90 tablet 08/13/16 [Rx] Prochlorperazine Maleate [Compazine] 10 mg PO Q8HR #90 tablet 08/13/16 [Rx] Oxycodone HCl 10 mg PO BID #60 tab 12/27/16 [Rx] HYDROcodone/Acet 5/325 mg [[place] 5-325 mg] 1 tab PO TID PRN 12/29/16 [History] Allergies No Known Allergies Allergy (Verified 09/13/16 13:50) All Systems PM: A 10-system review of systems was performed and is negative for pertinent findings except as documented above in the HPI. - Constitutional Constitutional: as per HPI, anorexia, chills, fever(s), weakness, no night sweats - EENT Eyes: no change in vision, no discharge, no pain, no photophobia Ears: no ear discharge, no ear pain, no tinnitus Nose, mouth and throat: no dysphagia, no nasal discharge, no neck pain, no sore throat - Breasts Breasts: as per HPI - Cardiovascular Cardiovascular ROS IM: as per HPI, dyspnea, lightheadedness, no chest pain, no diaphoresis, no palpitations, no syncope - Respiratory Respiratory: no cough, no dyspnea, no wheezing, no excessive phlegm production - Gastrointestinal Gastrointestinal: as per HPI, abdominal pain (RUQ and right flank), nausea, no diarrhea, no hematemesis, no hematochezia, no melena, no vomiting - Genitourinary Genitourinary: as per HPI, flank pain (Related to hematoma of liver), urinary frequency, no change in urinary stream, no dysuria, no hematuria Menstruation: as per HPI - Musculoskeletal Musculoskeletal ROS IM: no numbness, no tingling - Integumentary Integumentary IM: no rash, no unusual bruising - Neurological Neurological ROS: as per HPI, confusion, dizziness, lack of coordination, weakness - Psychiatric Psychiatric: as per HPI - Endocrine Endocrine IM: as per HPI - Hematologic/Lymphatic Hematologic/Lymphatic: no easy bruising - Allergic/Immunologic Allergic/Immunologic: as per HPI - Constitutional Vitals: Temp Pulse Resp BP Pulse Ox 98.7 F 94 16 119/54 96 12/29/16 14:46 12/29/16 16:28 12/29/16 17:13 12/29/16 17:13 12/29/16 17:12 General appearance: Present: cooperative, mild distress, A&O X 3, pleasant, obese, answers questions appropriately - Head Head exam: Present: atraumatic, normocephalic - Eye Eye exam: Present: PERRL, conjuntiva pink, sclera anicteric Pupils: Present: PERRL - ENT ENT exam: Present: normal exam, normal external ear exam - Neck Neck exam general surgery: Present: supple, trachea midline. Absent: lymphadenopathy - Respiratory Respiratory exam: Present: CTAB. Absent: accessory muscle use, rales, rhonchi, wheezes - Cardiovascular Cardiovascular exam: Present: RRR, +S1, +S2. Absent: diastolic murmur, gallop, rubs, systolic murmur Additional comments: EKG shows mild tachycardia with sinus rhythm. - GI/Abdominal GI/Abdominal exam: Present: diminished bowel sounds, hernia, soft, no peritoneal signs. Absent: distended, tenderness - Rectal Rectal exam: Present: deferred - Additional comments: exam deferred. - Extremities Exam Extremities exam: Present: normal inspection, warm, radial pulses palpable and symetrical. Absent: calf tenderness, cyanotic, pedal edema - Back Exam Back exam: Present: normal inspection - Neurological Exam Neurological exam: Present: CN II-XII intact, oriented X3, no focal deficits. Absent: pronater drift, facial droop, speech deficit - Psychiatric Psychiatric exam: Present: normal affect, normal mood - Skin Skin exam: Present: dry, intact Internal Med - H&P Results - Labs CBC & Chem 7: 12/29/16 15:20 12/29/16 15:20 - EKG Data EKG shows normal: sinus rhythm - EKG Data Prior EKG available for review: yes EKG comments: 12/29/16 17:48 EKG dated 12/16/16 shows: Sinus tachycardia and abnormal rhythm ECG. EKG dated 12/29/16 shows: Sinus rhythm and normal ECG. - Diagnostic Studies Chest x-ray Additional comments: 1-View CXR of the chest dated 12/29/16 shows: The cardiomediastinal silhouette is normal in size. There is asymmetric elevation of the right diaphragm. This is associated with some compressive atelectasis at the right base. No Pleural effusion or pneumothorax. No subdiaphragmatic free air is present. Overall Impression: No acute pulmonary process, chronic asymmetric elevation in the right diaphragm. <Janusz Candelaria H - Last Filed: 12/29/16 18:47> Date of Encounter: 12/29/16 Internal Medicine - H&P: HPI History of present illness: Ms. Weaver is a 61 year old female All Systems PM: A 10-system review of systems was performed and is negative for pertinent findings except as documented above in the HPI. - Constitutional Vitals: Temp Pulse Resp BP Pulse Ox 98.7 F 94 16 119/54 96 12/29/16 14:46 12/29/16 16:28 12/29/16 17:13 12/29/16 17:13 12/29/16 17:12 Internal Med - H&P Results - Labs CBC & Chem 7: 12/29/16 18:30 12/29/16 15:20 Labs: Short CBC 12/29/16 Range/Units 18:30 Hgb 9.7 L (11.5-15.4) g/dL Hct 30.6 L (35.3-44.9) % - Attending Attestation 1. Acute metabolic encephalopathy due to Sepsis secondary to urinary tract infection Continue Levaquin, await final report of urine culture Continue IV fluids 2. Acute blood lows anemia possibly secondary to increased subcapsular hematoma Order CT scan of the abdomen and pelvis without contrast Monitor CBC and consider transfusion if needed, would consider surgery consult depending on findings 3. History of urothelial carcinoma followed by oncology 4. Fever likely secondary to sepsis, heart rate 94 5. Large abdominal hernia 6. Morbid obesity The patient will be admitted as inpatient. Expected stay more than 2 midnights. Full code. Time spent this admission 40 minutes I examined this patient and my medical decision-making was reviewed with the EYE CLINIC MANAGER/PA/Advanced Practice Nurse/Resident Physician. I agree with the documented findings, disposition and treatment plan as described except to the extent set forth below.
--- NOTE | 2016-12-29 17:35 | Event Note ---
Date of Encounter: 12/29/16 Time of Encounter: 17:32 1. Acute metabolic encephalopathy due to Sepsis secondary to urinary tract infection Continue Levaquin, await final report of urine culture Continue IV fluids 2. Acute blood lows anemia possibly secondary to increased subcapsular hematoma Order CT scan of the abdomen and pelvis without contrast Monitor CBC and consider transfusion if needed, would consider surgery consult depending on findings 3. History of urothelial carcinoma followed by oncology 4. Fever likely secondary to sepsis, heart rate 94 5. Large abdominal hernia 6. Morbid obesity The patient will be admitted as inpatient. Expected stay more than 2 midnights. Full code. Time spent this admission 40 minutes
[2016-12-29 18:39] LABS: Hematocrit 30.6 % (35.3-44.9); Hemoglobin 9.7 g/dL (11.5-15.4)
[2016-12-29 18:45] LABS: INR 1.5; Prothrombin Time 16.7 Seconds (9.4-12.1)
[2016-12-29 18:48] LABS: Activated Partial Thrombo Time 25.7 Seconds (26.0-36.0)
[2016-12-29] MEDS: 0.9 % Sodium Chloride 1,000 ML IVC SCH (19:36)
[2016-12-29] MEDS: Levofloxacin 500 MG/100 ML 500 MG/100 ML BAG IVPB SCH (19:36)
[2016-12-29] MEDS: *HR* OxyCODONE Immed Rel 5 MG TABLET PO SCH (20:49)
[2016-12-29] MEDS: *HR* HYDROcodone/Acet 5/325 mg TABLET PO PRN (23:37)
[2016-12-29 23:52] LABS: Hemoglobin 9.1 g/dL (11.5-15.4)
[2016-12-30 01:45] LABS: Acinetobacter baumannii by PCR Not Detected (Not Detect); Candida albicans by PCR Not Detected (Not Detect); Candida glabrata by PCR Not Detected (Not Detect); Candida krusei by PCR Not Detected (Not Detect); Candida parapsilosis by PCR Not Detected (Not Detect); Candida tropicalis by PCR Not Detected (Not Detect); Enterococcus by PCR Not Detected (Not Detect); Escherichia coli by PCR Not Detected (Not Detect); Klebsiella oxytoca by PCR Not Detected (Not Detect); Klebsiella pneumoniae by PCR Not Detected (Not Detect); Pseudomonas aeruginosa by PCR Not Detected (Not Detect); Serratia marcescens by PCR Not Detected (Not Detect); Staphylococcus aureus by PCR Not Detected (Not Detect); Streptococcus agalactiae(B)PCR Not Detected (Not Detect); Streptococcus by PCR Not Detected (Not Detect); Streptococcus pneumoniae PCR Not Detected (Not Detect); Streptococcus pyogenes (A) PCR Not Detected (Not Detect); blaKPC Carbapenem-Resist Gene Not Detected (Not Detect); mecA Methicillin-Resist Gene Not Detected (Not Detect); vanA/B Vancomycin-Resist Genes Not Detected (Not Detect)
[2016-12-30] MEDS: *HR* HYDROcodone/Acet 5/325 mg TABLET PO PRN (04:52)
[2016-12-30 05:40] LABS: Basophils % 0.4 %; Eosinophils % 0.4 %; Hematocrit 28.3 % (35.3-44.9); Hemoglobin 8.9 g/dL (11.5-15.4); Immature Granulocytes % 0.9 % (0-4); Immature Platelets 1.7 % (1.1-6.1); Lymphocytes # 0.7 K/mcL (0.6-4.6); Lymphocytes % 12.1 %; Mean Corpuscular HGB Conc 31.4 g/dL (31.6-35.5); Mean Corpuscular Hemoglobin 30.9 pg (28.0-33.3); Mean Corpuscular Volume 98.3 fL (83.0-100.0); Mean Platelet Volume 8.8 fL (9.4-12.4); Monocytes # 0.7 K/mcL (0.0-1.3); Monocytes % 11.8 %; Neutrophils # 4.2 K/mcL (1.6-8.9); Platelet Count 330 K/mcL (140-400); Red Blood Count 2.88 M/mcL (3.82-4.97); Red Cell Distribution Width 17.4 % (11.5-14.5); Segmented Neutrophils % 74.4 %
[2016-12-30 05:54] LABS: Albumin 2.1 g/dL (3.5-5.0); Albumin/Globulin Ratio 0.5 (1.1-2.2); Bilirubin,Direct 0.6 mg/dL (0.0-0.5); Bilirubin,Indirect 0.2 mg/dL (0.0-1.2); Bilirubin,Total 0.8 mg/dL (0.2-1.2); Globulin 4.4 g/dL (2.4-3.5); Total Protein 6.5 g/dL (6.0-8.3)
[2016-12-30 05:58] LABS: Alanine Aminotransferase 82 Units/L (0-55); Albumin 2.1 g/dL (3.5-5.0); Albumin/Globulin Ratio 0.5 (1.1-2.2); Alkaline Phosphatase 233 Units/L (38-126); Aspartate Amino Transferase 54 Units/L (5-34); BUN/Creatinine Ratio 24 (6-26); Bilirubin,Total 0.8 mg/dL (0.2-1.2); Blood Urea Nitrogen 21 mg/dL (7-20); Calcium 9.4 mg/dL (8.6-10.8); Carbon Dioxide 24 mEq/L (19-29); Chloride 105 mEq/L (98-109); Chol/HDL Ratio 4.5 (0-4.9); Cholesterol 107 mg/dL (< 200); Globulin 4.4 g/dL (2.4-3.5); Glucose 91 mg/dL (70-99); HDL Cholesterol 24 mg/dL (40-59); LDL Cholesterol,Calculated 60 mg/dL (0-99); Magnesium 1.5 mg/dL (1.6-2.6); Osmolality,Calculated 283 (280-300); Potassium 3.7 mEq/L (3.5-4.5); Sodium 135 mEq/L (136-145); Total Protein 6.5 g/dL (6.0-8.3); Triglycerides 114 mg/dL (< 150); eGFR For African Americans > 60 (> 60); eGFR For Non-African Americans > 60 (> 60)
[2016-12-30] MEDS: 0.9 % Sodium Chloride 1,000 ML IVC SCH (06:46)
[2016-12-30] MEDS: *HR* OxyCODONE Immed Rel 5 MG TABLET PO SCH (08:25)
[2016-12-30] MEDS: Levofloxacin 500 MG/100 ML 500 MG/100 ML BAG IVPB SCH (08:25)
--- NOTE | 2016-12-30 09:53 | Discharge Summary ---
<Bryan Crawford - Last Filed: 12/30/16 10:29> Date of Encounter: 12/30/16 Time of Encounter: 08:15 - Discharge Diagnosis (1) Subcapsular hematoma of liver Priority: Primary Status: Acute (2) Acute blood loss anemia Priority: Secondary Status: Acute (3) Urinary tract infection Priority: Secondary Status: Acute Qualifiers: Urinary tract infection type: acute cystitis Hematuria presence: without hematuria Qualified Code(s): N30.00 - Acute cystitis without hematuria (4) Altered mental status Priority: Secondary Status: Acute Qualifiers: Altered mental status type: unspecified Qualified Code(s): R41.82 - Altered mental status, unspecified (5) Urothelial cancer Priority: Secondary Status: Chronic - Discharge Medications Home Medications: ALPRAZolam [Xanax 0.5 MG Tablet] 0.5 mg PO BID PRN #60 tablet 08/10/16 [Rx] Lisinopril [Zestril] 10 mg PO DAILY 08/10/16 [History] Loratadine [Claritin] 10 mg PO AD PRN #10 tablet 08/13/16 [Rx] Magic Mouthwash [Magic Mouthwash BLM] 10 ml PO QID PRN #240 ml 08/13/16 [Rx] Ondansetron [Zofran] 4 mg PO Q8HR PRN #90 tablet 08/13/16 [Rx] Prochlorperazine Maleate [Compazine] 10 mg PO Q8HR #90 tablet 08/13/16 [Rx] Oxycodone HCl 10 mg PO BID #60 tab 12/27/16 [Rx] HYDROcodone/Acet 5/325 mg [[place] 5-325 mg] 1 tab PO TID PRN 12/29/16 [History] Allergies/Adverse Reactions: Allergies No Known Allergies Allergy (Verified 09/13/16 13:50) Date of admission: 12/29/16 17:09 Primary care physician: Joe Suarez Consults: 12/29/16 18:38 Consult to Nutrition [CONS] Routine Comment: Consulting Provider: NUTRITION Reason for Dietary Consult: MST Score Consult to Game Show Host [CONS] Routine Reason for SW Consult: poss home health need Discharging clinician: Jeremías Flaherty Anticipated date of discharge: 12/30/16 - Patient Status Disposition: Transfer Other Condition: Fair Functional capacity at discharge: independent ambulation Overall status at discharge: patient is progressing back to baseline - Discharge Instructions Instructions: Acute Kidney Injury (DC), Acute Kidney Injury (GEN), Urinary Tract Infection in Women (DC), Sepsis (DC), Chronic Hypertension (DC), Anemia ( GEN), Acute Kidney Injury, Street Superintendent (GEN) Follow Up With: Joe Suarez DO [Primary Care Provider] - - Diet and Activity Activity: increase activity as tolerated Diet: advance to your usual diet Interval History: Patient seen and examined this AM, no acute distress. Discussed CT findings of increasing supcapsular hepatic hematoma. Hospital course: Ms. Weaver is a 61 year old female with PMHx of metastatic urothelial cancer. Last chemotherapy was beginning of December. She presented to ED with fever, altered mental status, and urinary symptoms. Family members called oncology and they were concerned she may have a UTI and sent her in for further evaluation. Patient reports these symptoms began approximately 24 hours ago and her urine is dark in color and has strong odor. Patient reports increae frenquency, but no burning with urination. Reports fevers up to 102 F prior to admission. Associated symptoms of nausea, lightheadedness, unsteadiness, and shortness of breath. Patient started on Levaquin IV 500 mg daily, pending blood and urine cultures. Preliminary blood culture showing gram negative deandre. Found to be anemic; Hgb 11.0 on 12/27/16, to 8.9 today 12/30/16. History of supcapular hepatic hematoma from previous admission, 6.7cmx17.1cmx18.5cm. Repeat CT abdomen yesterday showing increasing hematoma, 11.3cm x 24.3cm x 20.5cm. Spoke with on-call surgery, recommending IR guided drainage. Plan discussed with oncologist. Patient and spouse agreeable to transfer for procedure and further management. - Time Spent with Patient Total time spent providing and/or coordinating discharge services: Greater than 30 minutes (40mins) - Constitutional Vitals: Temp Pulse Resp BP Pulse Ox 97.8 F 86 16 125/67 97 12/30/16 08:11 12/30/16 08:11 12/30/16 08:11 12/30/16 08:11 12/30/16 08:11 General appearance: Present: cooperative, A&O X 3, pleasant, no acute distress, obese, answers questions appropriately - Head Head exam: Present: atraumatic, normocephalic - Eye Eye exam: Present: EOMI, conjuntiva pink - ENT ENT exam: Present: mucous membranes moist - Neck Neck exam general surgery: Present: full ROM, supple - Respiratory Respiratory exam: Present: CTAB - Cardiovascular Cardiovascular exam: Present: RRR. Absent: diastolic murmur, systolic murmur - GI/Abdominal GI/Abdominal exam: Present: soft. Absent: firm, guarding, tenderness - Extremities Exam Extremities exam: Present: warm. Absent: cyanotic, pedal edema, tenderness - Neurological Exam Neurological exam: Present: alert, oriented X3, no focal deficits - Psychiatric Psychiatric exam: Present: normal affect, normal mood - Skin Skin exam: Present: dry, normal color, warm. Absent: cyanosis, rash <Jeremías Flaherty P - Last Filed: 12/30/16 16:12> Date of Encounter: 12/30/16 Date of admission: 12/29/16 17:09 Primary care physician: Joe Suarez Consults: 12/29/16 18:38 Consult to Nutrition [CONS] Routine Comment: Consulting Provider: NUTRITION Reason for Dietary Consult: MST Score Consult to Game Show Host [CONS] Routine Reason for SW Consult: poss home health need Hospital course: Ms. Weaver is a 61 year old female - Time Spent with Patient Total time spent providing and/or coordinating discharge services: - Constitutional Vitals: Temp Pulse Resp BP Pulse Ox 98.1 F 81 15 114/52 94 12/30/16 12:07 12/30/16 12:07 12/30/16 12:07 12/30/16 12:07 12/30/16 12:07 - Attending Attestation I examined this patient and my medical decision-making was reviewed with the MAGAZINE JOURNALIST/PA/Advanced Practice Nurse/Resident Physician. I agree with the documented findings, disposition and treatment plan as described except to the extent set forth below.
[2016-12-30 12:09] VITALS: BP 114/52
[2016-12-30] MEDS ORDERED: *HR* Morphine 2 MG/ML SYRINGE IVP ONE (13:59)
--- NOTE | 2017-01-01 07:23 | Electrocardiograph Report ---
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
== END 2016-12-30 14:30 | disposition other institution (70) | DRG 871 ==
LOC: 2NENU 14:41 → EMEROO 14:41 → 2NENU 16:48
PROVIDERS: ADMIT Nurse Practitioner Family; ATTEND Internal Medicine